=== PATIENT | male | born 1945 | race Caucasian/White ===

== ENCOUNTER 2016-10-26 23:04 | Emergency (ER) | payer MEDICARE, BC, OTHER ==
[2016-10-26] MEDS ORDERED: Sodium Chloride 0.9% 2.5 ML Syringe FLUSH PRN (23:08)
[2016-10-26] MEDS ORDERED: Pantoprazole 40 MG Vial IVPUSH ONE (23:08)
[2016-10-26] MEDS ORDERED: Sodium Chloride 0.9% 10 ML Syringe FLUSH PRN (23:08)
[2016-10-26] MEDS ORDERED: Nitroglycerin 2% Oint 1 GM UD Packet TOP ONE (23:08)
[2016-10-26] MEDS ORDERED: Pantoprazole 80 MG in Sodium Chloride 0.9% 100 ML IV SCH (23:15)
[2016-10-26] MEDS ORDERED: Sodium Chloride 0.9% 1,000 ML IV SCH (23:15)
--- NOTE | 2016-10-26 23:22 | EDM.PDOC ---
ED HPI GENERAL MEDICAL PROBLEM - General Stated Complaint: TROUBLE BREATHING/HEART COMPLICATIONS Time Seen by Provider: 10/26/16 23:07 - History of Present Illness INITIAL COMMENTS - FREE TEXT/NARRATIVE: HISTORY AND PHYSICAL: History of present illness: Patient 8-year-old male with history of coronary artery disease including bypass surgery 15 years prior states your recent cardiac workup including stress that was unremarkable he comes in today with chest pain exertional this has been since this a.m. he said no treatment with nitroglycerin on arrival here he states with rest in bed he is essentially pain-free he also said black stools times one day he denies abdominal pain he has had equivocal shortness of breath he denies nausea vomiting diaphoresis fever chills or other complaints patient take aspirin and Plavix daily Review of systems: As per history of present illness and below otherwise all systems reviewed and negative. Past medical history: As per history of present illness and as reviewed below otherwise noncontributory. Surgical history: As per history of present illness and as reviewed below otherwise noncontributory. Social history: No reported history of drug or alcohol abuse. Family history: As per history of present illness and as reviewed below otherwise noncontributory. Physical exam: HEENT: Atraumatic, normocephalic, pupils reactive, negative for scleral icterus , mucous membranes moist, throat clear, neck supple, nontender, trachea midline. Lungs: Clear to auscultation, breath sounds equal bilaterally, chest nontender. Heart: S1S2, regular, negative for clicks, rubs, or JVD. Abdomen: Soft, nondistended, nontender. Negative for masses or hepatosplenomegaly. Negative for costovertebral tenderness. Pelvis: Stable nontender. Genitourinary: Deferred. Rectal: Deferred. Extremities: Atraumatic, negative for cords or calf pain. Neurovascular unremarkable. Neuro: Awake, alert, oriented. Cranial nerves II through XII unremarkable. Cerebellum unremarkable. Motor and sensory unremarkable throughout. Exam nonfocal. Diagnostics: CBC CMP PT/INR troponin chest x-ray EKG type and screen Therapeutics: IV O2 monitor Protonix 80 mg bolus followed by a milligram hour drip nitroglycerin paste Impression: #1 chest pain #2 GI bleed Definitive disposition and diagnosis as appropriate pending reevaluation and review of above. - Related Data Allergies Allergy/AdvReac Type Severity Reaction Status Date / Time No Known Allergies Allergy Verified 10/26/16 23:12 Home Meds: Home Meds Calcium Carbonate/Vitamin D3 [Calcium 250+D] 1 tab PO DAILY 05/17/16 [History] Lisinopril [Prinivil] 10 mg PO DAILY 05/17/16 [History] Methotrexate Sodium [Methotrexate] 12.5 mg PO FOSTER@0900 05/17/16 [History] Metoprolol Tartrate [Lopressor] 25 mg PO Q12HR 05/17/16 [History] Niacin 500 mg PO DAILY 05/17/16 [History] Wever-3 Fatty Acids [Fish Oil] 300 mg PO DAILY 05/17/16 [History] Simvastatin [Zocor] 80 mg PO BEDTIME 05/17/16 [History] predniSONE [Prednisone] 2.5 mg PO DAILY 05/17/16 [History] Gabapentin [Neurontin] 600 mg PO TID 06/27/16 [History] HYDROmorphone [Dilaudid] 4 mg PO Q4H 06/27/16 [History] fentaNYL [Fentanyl] 50 mcg TD ASDIRECTED 06/27/16 [History] Aspirin 81 mg PO BEDTIME #0 07/02/16 [Rx] Clopidogrel [Plavix] 75 mg PO DAILY #0 07/02/16 [Rx] tiZANidine [Zanaflex] 4 mg PO Q8H PRN #15 tablet 07/02/16 [Rx] Past Medical History HEENT History: Reports: Hard of hearing Cardiovascular History: Reports: Afib, CAD, High cholesterol, Hypertension Respiratory History: Reports: Sleep apnea Musculoskeletal History: Reports: Back pain, chronic, RA Neurological History: Reports: Migraines Psychiatric History: Reports: None Endocrine/Metabolic History: Reports: None Hematologic History: Reports: None Immunologic History: Reports: None Oncologic (Cancer) History: Reports: None Dermatologic History: Reports: Other (see below) Other Dermatologic History: Dermatitis - Infectious Disease History Infectious Disease History: Reports: None - Past Surgical History Head Surgeries/Procedures: Reports: None HEENT Surgical History: Reports: None Cardiovascular Surgical History: Reports: Carotid endarterectomy, Coronary artery bypass Respiratory Surgical History: Reports: None Neurological Surgical History: Reports: None Musculoskeletal Surgical History: Reports: None Dermatological Surgical History: Reports: None Social & Family History - Family History Family Medical History: Noncontributory - Tobacco Use Smoking Status *Q: Former Smoker Used Tobacco, but Quit: Yes Month Tobacco Last Used: 2005 Second Hand Smoke Exposure: No - Caffeine Use Caffeine Use: Reports: None - Recreational Drug Use Recreational Drug Use: No Drug Use in Last 12 Months: No ED ROS GENERAL - Review of Systems Review Of Systems: ROS reveals no pertinent complaints other than HPI. ED EXAM, GENERAL - Physical Exam Exam: See Below (See dictation) Course - Orders/Labs/Meds Orders: Active Orders 24 hr Category Date Time Status Cardiac Monitoring [RC] . DIRECTED Care 10/26/16 23:07 Ordered EKG Documentation Completion [RC] STAT Care 10/26/16 23:07 Ordered Oxygen Therapy, ED [RC] ASDIRECTED Care 10/26/16 23:07 Ordered Pulse Oximetry [RC] ASDIRECTED Care 10/26/16 23:07 Ordered Chest 1V Frontal [CR] Stat Exams 10/26/16 23:08 Ordered B-TYPE NATRIURETIC PEPTIDE,BNP [CHEM] Stat Lab 10/26/16 23:08 Ordered CBC WITH AUTO DIFF [HEME] Stat Lab 10/26/16 23:08 Ordered COMPREHENSIVE METABOLIC PN,CMP [CHEM] Stat Lab 10/26/16 23:08 Ordered INR,PT,PROTHROMBIN TIME [COAG] Stat Lab 10/26/16 23:08 Ordered TROPONIN I [CHEM] Stat Lab 10/26/16 23:08 Ordered TYPE AND SCREEN [BBK] Stat Lab 10/26/16 23:08 Ordered Pantoprazole [Protonix IV] 80 mg Med 10/26/16 23:15 Ordered Sodium Chloride 0.9% [Normal Saline] 100 ml IV .Continuous Sodium Chloride 0.9% [Normal Saline] 1,000 ml Med 10/26/16 23:15 Ordered IV STAT Sodium Chloride 0.9% [Saline Flush] Med 10/26/16 23:08 Ordered 10 ml FLUSH ASDIRECTED PRN Sodium Chloride 0.9% [Saline Flush] Med 10/26/16 23:08 Ordered 2.5 ml FLUSH ASDIRECTED PRN Saline Lock Insert [OM.PC] Stat Oth 10/26/16 23:07 Ordered Medication Orders Pantoprazole Sodium 80 mg/ (Sodium Chloride) 100 mls @ 10 mls/hr IV .Continuous ALISON Sodium Chloride (Normal Saline) 1,000 mls @ 125 mls/hr IV STAT ALISON Sodium Chloride (Saline Flush) 10 ml FLUSH ASDIRECTED PRN PRN Reason: Keep Vein Open Sodium Chloride (Saline Flush) 2.5 ml FLUSH ASDIRECTED PRN PRN Reason: Keep Vein Open Meds: Medications Generic Name Dose Route Start Last Admin Trade Name Freq PRN Reason Stop Dose Admin Pantoprazole Sodium 80 mg/ 100 mls @ 10 mls/hr 10/26/16 23:15 Sodium Chloride IV .Continuous ALISON Sodium Chloride 1,000 mls @ 125 mls/hr 10/26/16 23:15 Normal Saline IV STAT ALISON Sodium Chloride 10 ml 10/26/16 23:08 Saline Flush FLUSH ASDIRECTED PRN Keep Vein Open Sodium Chloride 2.5 ml 10/26/16 23:08 Saline Flush FLUSH ASDIRECTED PRN Keep Vein Open Discontinued Medications Generic Name Dose Route Start Last Admin Trade Name Freq PRN Reason Stop Dose Admin Nitroglycerin 1 gm 10/26/16 23:08 Nitro-Bid 2% TOP 10/26/16 23:09 ONETIME ONE Pantoprazole Sodium 80 mg 10/26/16 23:08 Protonix Iv IVPUSH 10/26/16 23:09 .BOLUS ONE Departure - Departure Time of Disposition: 23:21 Disposition: DC/Tfer to Other 70 Condition: serious Clinical Impression: Chest pain, GI bleed - My Orders Last 24 Hours: My Active Orders 10/26/16 23:07 Cardiac Monitoring [RC] . DIRECTED EKG Documentation Completion [RC] STAT Oxygen Therapy, ED [RC] ASDIRECTED Pulse Oximetry [RC] ASDIRECTED Saline Lock Insert [OM.PC] Stat 10/26/16 23:08 Chest 1V Frontal [CR] Stat B-TYPE NATRIURETIC PEPTIDE,BNP [CHEM] Stat CBC WITH AUTO DIFF [HEME] Stat COMPREHENSIVE METABOLIC PN,CMP [CHEM] Stat INR,PT,PROTHROMBIN TIME [COAG] Stat TROPONIN I [CHEM] Stat TYPE AND SCREEN [BBK] Stat Sodium Chloride 0.9% [Saline Flush] 10 ml FLUSH ASDIRECTED PRN Sodium Chloride 0.9% [Saline Flush] 2.5 ml FLUSH ASDIRECTED PRN 10/26/16 23:15 Pantoprazole [Protonix IV] 80 mg Sodium Chloride 0.9% [Normal Saline] 100 ml IV .Continuous Sodium Chloride 0.9% [Normal Saline] 1,000 ml IV STAT - Assessment/Plan Last 24 Hours: My Active Orders 10/26/16 23:07 Cardiac Monitoring [RC] . DIRECTED EKG Documentation Completion [RC] STAT Oxygen Therapy, ED [RC] ASDIRECTED Pulse Oximetry [RC] ASDIRECTED Saline Lock Insert [OM.PC] Stat 10/26/16 23:08 Chest 1V Frontal [CR] Stat B-TYPE NATRIURETIC PEPTIDE,BNP [CHEM] Stat CBC WITH AUTO DIFF [HEME] Stat COMPREHENSIVE METABOLIC PN,CMP [CHEM] Stat INR,PT,PROTHROMBIN TIME [COAG] Stat TROPONIN I [CHEM] Stat TYPE AND SCREEN [BBK] Stat Sodium Chloride 0.9% [Saline Flush] 10 ml FLUSH ASDIRECTED PRN Sodium Chloride 0.9% [Saline Flush] 2.5 ml FLUSH ASDIRECTED PRN 10/26/16 23:15 Pantoprazole [Protonix IV] 80 mg Sodium Chloride 0.9% [Normal Saline] 100 ml IV .Continuous Sodium Chloride 0.9% [Normal Saline] 1,000 ml IV STAT
[2016-10-27 00:17] LABS: CHLORIDE,CL 108 mmol/L (98-110); SODIUM,NA 141 mmol/L (136-146)
[2016-10-27 00:42] VITALS: BP 127/67
--- NOTE | 2016-10-28 18:21 | CR ---
EXAM DATE: 10/26/16 PATIENT'S AGE: 71 Patient: RICH NORY Facility: [facility] [place] Site . Site : [id number] Study: XRay Chest [id number]/4/2017 11:35:50 PM Ordering Physician: Doctor Wallace Final Report: INDICATION: Chest pain TECHNIQUE: Chest 1 view. COMPARISON: 05/17/2016 FINDINGS: Cardiovascular and mediastinum: Heart size and vasculature are normal in caliber and appearance. Sternotomy wires noted. Mediastinum is within normal limits. Lungs and pleural space: Lungs are clear. No sign of infiltrate or mass. No sign of pleural effusion. No pneumothorax. Bones and soft tissues: No significant findings. IMPRESSION: Unremarkable chest. Dictated by Rich Lindsey MD @ 10/26/2016 11:57:42 PM Dictated by: Rich Lindsey MD @ 10/26/2016 23:59:08 (Electronic Signature) Report Signed by Proxy and Original Signed Document filed in the Medical Record. MTDD
== END 2016-10-27 00:25 | disposition other institution (70) ==
LOC: MW.ED 23:04
DX: K92.2 Gastrointestinal hemorrhage, unspecified (principal); R07.9 Chest pain, unspecified; I48.91 Unspecified atrial fibrillation; E78.00 Pure hypercholesterolemia, unspecified; I25.810 Atherosclerosis of coronary artery bypass graft(s) without angina pectoris; I10 Essential (primary) hypertension; M06.9 Rheumatoid arthritis, unspecified; Z79.82 Long term (current) use of aspirin; Z79.899 Other long term (current) drug therapy; Z87.891 Personal history of nicotine dependence
CPT/HCPCS: 36415; 71010; 80053; 82272; 83880; 84484; 85025; 85610; 86850; 86900; 86901; 93005; 96365; 96376; 99285; A9270; C9113; J7030; J7040

== ENCOUNTER → 2016-11-15 | Outpatient (CLI) | payer OTHER, MEDICARE, BC | LOC: MW.CHFP 08:21 | PROVIDERS: ATTEND Emergency Medicine | DX: I10 Essential (primary) hypertension (principal) | CPT/HCPCS: 36415; 85027 ==

== ENCOUNTER 2017-01-14 10:43 | Day surgery (SDC) | payer OTHER, MEDICARE, BC ==
[~2017-01-14 10:43] MED LIST: Lactated Ringers 1,000 ML IV SCH; Propofol 200 MG/20 ML SDV ONE; fentaNYL 100 MCG/2 ML SDV ONE
--- NOTE | 2017-01-14 11:35 | PCM.PREANE ---
Preanesthetic Assessment - Anesthesia/Transfusion/Family Hx Anesthesia History: Prior Anesthesia Without Reaction Family History of Anesthesia Reaction: No Transfusion History: Prior Transfusion Without Reaction Intubation History: Unknown - Review of Systems General: No Symptoms Pulmonary: No Symptoms Cardiovascular: No Symptoms Neurological: No Symptoms Other: Reports: None - Physical Assessment O2 Sat by Pulse Oximetry: 96 Respiratory Rate: 14 Vital Signs: Last Vital Signs Temp 36.2 C 01/14/17 11:29 Pulse 45 L 01/14/17 11:29 Resp 14 01/14/17 11:29 BP 117/56 L 01/14/17 11:29 Pulse Ox 96 01/14/17 11:29 Height: 1.83 m Weight: 90.718 kg ASA Class: 3 Mental Status: Alert & Oriented x3 Airway Class: Mallampati = 2 Dentition: Reports: Normal Dentition Thyro-Mental Finger Breadths: 3 ROM/Head Extension: Limited/Partial Lungs: Clear to auscultation, Normal respiratory effort Cardiovascular: Regular Rate, Regular Rhythm - Allergies Allergies/Adverse Reactions: Allergies Allergy/AdvReac Type Severity Reaction Status Date / Time No Known Allergies Allergy Verified 10/26/16 23:12 - Blood Blood Available: No - Anesthesia Plan Pre-Op Medication Ordered: None - Acknowledgements Anesthesia Type Planned: MAC Pt an Appropriate Candidate for the Planned Anesthesia: Yes Alternatives and Risks of Anesthesia Discussed w Pt/Guardian: Yes Pt/Guardian Understands and Agrees with Anesthesia Plan: Yes PreAnesthesia Questionnaire HEENT History: Reports: Other (See Below) Other HEENT History: wears glasses Cardiovascular History: Reports: Afib, CAD (s/p CABG x2 '02), High Cholesterol, Hypertension, Other (See Below) (s/p left carotid endarterectomy) Respiratory History: Reports: Sleep Apnea Other Respiratory History: mild sleep apnea, does not use CPAP Gastrointestinal History: Reports: GERD, GI Bleed (in october) Genitourinary History: Reports: None Musculoskeletal History: Reports: Back Pain, Chronic, RA Neurological History: Reports: Migraines Psychiatric History: Reports: None Endocrine/Metabolic History: Reports: None Hematologic History: Reports: Anemia, Blood Transfusion(s) Other Hematologic History: 4 units of blood 2 to 3 months ago for GI bleed Immunologic History: Reports: None Oncologic (Cancer) History: Reports: None Dermatologic History: Reports: Other (See Below) Other Dermatologic History: Dermatitis - Infectious Disease History Infectious Disease History: Reports: None - Past Surgical History Head Surgeries/Procedures: Reports: None HEENT Surgical History: Reports: None Cardiovascular Surgical History: Reports: Carotid Endarterectomy, Coronary Artery Bypass Respiratory Surgical History: Reports: None GI Surgical History: Reports: Colonoscopy, EGD Male Surgical History: Reports: None Neurological Surgical History: Reports: None Musculoskeletal Surgical History: Reports: None Dermatological Surgical History: Reports: None - SUBSTANCE USE Smoking Status *Q: Former Smoker Tobacco Use Within Last Twelve Months: No Second Hand Smoke Exposure: No Recreational Drug Use History: No - HOME MEDS Home Medications: Home Meds Calcium Carbonate/Vitamin D3 [Calcium 250+D] 1 tab PO BID 05/17/16 [History] Lisinopril [Prinivil] 5 mg PO DAILY 05/17/16 [History] Metoprolol Tartrate [Lopressor] 25 mg PO BID 05/17/16 [History] Perley-3 Fatty Acids [Fish Oil] 300 mg PO DAILY 05/17/16 [History] predniSONE [Prednisone] 2.5 mg PO DAILY 05/17/16 [History] Aspirin 81 mg PO BEDTIME #0 07/02/16 [Rx] atorvaSTATin [Lipitor] 40 mg PO BEDTIME 10/26/16 [History] traZODone HCl [Trazodone HCl] 100 mg PO BEDTIME PRN 10/26/16 [History] Alendronate Sodium [Fosamax] 70 mg PO WEEKLY 01/09/17 [History] Hydrocortisone [Cortisone] 1 applic TOP ASDIRECTED PRN 01/09/17 [History] Meloxicam [Mobic] 15 mg PO DAILY 01/09/17 [History] Methotrexate 6 tab PO WEEKLY 01/09/17 [History] Pantoprazole Sodium 40 mg PO BID 01/09/17 [History] - CURRENT (IN HOUSE) MEDS Current Meds: Current Medications Lactated Ringer's (Ringers, Lactated) 1,000 mls @ 125 mls/hr IV ASDIRECTED ALISON Last Admin: 01/14/17 11:27 Dose: 125 mls/hr Discontinued Medications Fentanyl (Sublimaze) Confirm Administered Dose 100 mcg .ROUTE .STK-MED ONE Stop: 01/14/17 07:30 Propofol (Diprivan 20 Ml) Confirm Administered Dose 400 mg .ROUTE .STK-MED ONE Stop: 01/14/17 07:29
[2017-01-14] MEDS ORDERED: Propofol 200 MG/20 ML SDV ONE (13:01)
--- NOTE | 2017-01-14 13:29 | PCM.OPNOTE ---
- General Post-Op/Procedure Note Date of Surgery/Procedure: 01/14/17 Operative Procedure(s): egd and colonoscopy Findings: see dict [id number] Pre Op Diagnosis: gib and abd pain Post-Op Diagnosis: gastritis and hemorrhoid Anesthesia Technique: Moderate sedation Primary Surgeon: Zenon Gunn Complications: None Condition: Good
--- NOTE | 2017-01-14 13:53 | PCM.POSTAN ---
POST ANESTHESIA ASSESSMENT - MENTAL STATUS Mental Status: alert, oriented - RESPIRATORY Respiratory Status: respiratory rate WNL, airway patent, O2 saturation stable - CARDIOVASCULAR CV Status: pulse rate WNL, blood pressure stable - GASTROINTESTINAL GI Status: no symptoms - POST OP HYDRATION Hydration Status: adequate & stable - OBSERVATIONS Free Text/Narrative:: no anesthesia problems
[2017-01-14 14:28] VITALS: BP 117/56
--- NOTE | 2017-01-14 20:18 | OR ---
SURGEON: Zenon Gunn MD DATE OF PROCEDURE: 01/14/2017 PREOPERATIVE DIAGNOSES: Abdominal pain and gastrointestinal bleeding. POSTOPERATIVE DIAGNOSES: Gastritis and hemorrhoids. PROCEDURE PERFORMED: EGD without biopsy and colonoscopy without biopsy. EGD: The patient was taken to the endoscopy room, and with the [employer] [employer], Diprivan was administered. A well-lubricated EGD scope was gently inserted through the oropharynx, down the esophagus, passing through the gastroesophageal junction, into the stomach. The mucosa was examined upon the passage. Any etiology will be noted. Once in the stomach, we continued to advance to the distal antrum, passed through the pylorus into the second portion of the duodenum. Again, the mucosa was examined for any abnormality and etiology. The scope was then retrieved back to the stomach and then retroflexed to look at the fundus of the stomach. The air will be sucked out while the scope is retrieved to reduce the patient's discomfort. The patient tolerated the procedure well. There were no intraoperative complications. Dr. Gunn was present through the whole procedure. Prior to surgery, a time-out had been called, the patient identified, procedure identified and antibiotic administered. Colonoscopy: The patient was taken to the endoscopy room. A time out was called, patient identified, and procedure identified. Diprivan was then administrated. Patient went from awake to sleep, hearing doctor talking or door closing is normal. Perineum inspection and digital examination were then performed. A well-lubricated colonoscope was gently inserted through the rectum, advanced past the rectosigmoid junction, the descending colon, splenic flexure, transverse colon, hepatic flexure, ascending colon, arrived to the cecum. Cecum was identified as dictated in the finding. Then the scope was carefully withdrawn while attention was paid to the mucosal surface for any abnormality. Air will be sucked out during the scope withdrawal. At the rectum, retroflexed to examine any rectal diseases, fistula or hemorrhoids. The patient tolerated procedure well. There were no intraoperative complications, and Dr. Gunn was present throughout the whole procedure. FINDINGS: EGD finding: The patient was easily sedated with [employer]IST and Diprivan. The patient was soundly snoring. The patient was on aspirin all the way two days ago, so avoid biopsy. Oropharynx and proximal esophagus were free of disease. Distal esophagus and GE junction at 40 shows mild salmon color change consistent with acid reflux. Stomach rugae was normal in appearance. No bile, food, or blood observed in the stomach. Antrum was slightly inflamed. Duodenum was grossly normal in appearance and the scope retrieved back to the stomach. Retroflexion of the fundus of the stomach, there were no hiatal hernias and sucked out air while scope pulling out. No biopsy obtained, as the patient was on aspirin up to about two days ago. The area was very inflamed, but there was no flank ulcer and no blood observed. Colonoscopy findin. The patient was easily sedated with [employer] [employer]IST and Diprivan. The patient is soundly snoring. 2. The patient's bowel prep is left to be desirable with some minimal-to- moderate amount of liquid stool obscured with compromised study. Colon rather straight forward. Cecum indicated by ileocecal fold, one-to-one indentation, and light immittance is not observed. Appendix orifice is observed. Mucosa examined upon scope pulling out with constant irrigation. The patient does not have polyp, mass, growth, inflammation, diverticulosis, stricture, ulceration, bleeding, or AV malformation. The patient has mild internal hemorrhoids. No external hemorrhoids. The patient would benefit from repeat colonoscopy 10 years from today or if clinically indicated otherwise. As always, thank you for the kind referral. LUDWIN CARMEN /[id number] INDIGO
== END 2017-01-14 13:50 | disposition home or self-care (01) ==
LOC: MW.SDS 10:43
PROVIDERS: ATTEND Surgery
DX: K64.8 Other hemorrhoids (principal); K29.70 Gastritis, unspecified, without bleeding; I25.10 Atherosclerotic heart disease of native coronary artery without angina pectoris; I48.91 Unspecified atrial fibrillation; I10 Essential (primary) hypertension; E78.00 Pure hypercholesterolemia, unspecified; G47.30 Sleep apnea, unspecified; M06.9 Rheumatoid arthritis, unspecified; K21.9 Gastro-esophageal reflux disease without esophagitis; Z95.1 Presence of aortocoronary bypass graft; Z98.890 Other specified postprocedural states; Z79.82 Long term (current) use of aspirin; Z79.899 Other long term (current) drug therapy
CPT/HCPCS: 43235; 45378; J3010; J7120; 00740; J2704

== ENCOUNTER 2018-05-26 21:29 | Observation (INO) | payer OTHER, MEDICARE, BC ==
[2018-05-26] MEDS ORDERED: Sodium Chloride 0.9% 2.5 ML Syringe FLUSH PRN ×2 (21:44)
[2018-05-26] MEDS ORDERED: Sodium Chloride 0.9% 10 ML Syringe FLUSH PRN (21:44)
[2018-05-26] MEDS ORDERED: Aspirin 81 MG Tab.Chew PO ONE (21:44)
[2018-05-26] MEDS ORDERED: Nitroglycerin 0.4 MG Tab.SL SL ONE (21:44)
[2018-05-26] MEDS ORDERED: Sodium Chloride 0.9% 1,000 ML IV ONE (21:44)
--- NOTE | 2018-05-26 21:54 | EDM.PDOC ---
ED HPI GENERAL MEDICAL PROBLEM - General Chief Complaint: Chest Pain Stated Complaint: BLOOD PRESURE HIGH AND CHEST PAINS Time Seen by Provider: 05/26/18 21:31 Source of Information: Reports: Patient History Limitations: Reports: No Limitations - History of Present Illness INITIAL COMMENTS - FREE TEXT/NARRATIVE: HISTORY AND PHYSICAL: History of present illness: [72-year-old male presenting to emergency department with chief complaint of chest pain and left arm pain with past medical history of CABG 2 on Plavix, HI , CAD, hyperlipidemia, and rheumatoid arthritis.] Patient states that this last weekend on Friday and Friday he felt more fatigued and some mild "heartburn" which is unusual for him. States that 2 days ago he had a headache and felt somewhat sweaty with some shortness of breath. Tonight he again had some heart burn as well as left arm pain so came to the emergency department for futher evaluation secondary to his cardiac history. Arm pain is constant and dull and his heart burn is substernal without radiation. He did have some diaphoresis and shortness of breath but denies any nausea and vomiting. He did have an HI in which felt much different with significant chest pain, nausea, diphoresis and sob. This is different. He has RA and get joint and limb pain often and is not sure if the left arm pain is secondary to this. He also has a history of heartburn but has been taking a perscription ppi which has controlled his symptoms until now. He had a CABG x 2 in . He last saw his telegraph inspector Dr. Jo. Review of systems: As per history of present illness and below otherwise all systems reviewed and negative. Past medical history: As per history of present illness and as reviewed below otherwise noncontributory. Surgical history: As per history of present illness and as reviewed below otherwise noncontributory. Social history: No reported history of drug or alcohol abuse. Family history: As per history of present illness and as reviewed below otherwise noncontributory. Physical exam: HEENT: Atraumatic, normocephalic, pupils reactive, negative for conjunctival pallor or scleral icterus, mucous membranes moist, throat clear, neck supple, nontender, trachea midline. Lungs: Clear to auscultation, breath sounds equal bilaterally, chest nontender. Heart: S1S2, regular, negative for clicks, rubs, or JVD. Abdomen: Soft, nondistended, nontender. Negative for masses or hepatosplenomegaly. Negative for costovertebral tenderness. Pelvis: Stable nontender. Genitourinary: Deferred. Rectal: Deferred. Extremities: Atraumatic, negative for cords or calf pain. Neurovascular unremarkable. Neuro: Awake, alert, oriented. Cranial nerves II through XII unremarkable. Cerebellum unremarkable. Motor and sensory unremarkable throughout. Exam nonfocal. Diagnostics: CBC, CMP, troponin, INR, d-dimer, chest x-ray, EKG Therapeutics: 1 L normal saline, 324 mg by mouth ASA, 0.4 mg SL nitroglycerin 1 Impression: Atypical chest pain GERD Left arm pain History rheumatoid arthritis Plan: CBC, CMP, troponin, INR, chest x-ray were all unremarkable. EKG showed normal sinus rhythm without any significant new ST changes. D-dimer was elevated however Wells criteria was low. We did get a CT angio however which was negative for PE. Secondary to patient's cardiac history patient was admitted to Dr. Pritchard, hospitalist, who agreed for observation telemetry for atypical chest pain. Definitive disposition and diagnosis as appropriate pending reevaluation and review of above. chest pain Pain Score (Numeric/FACES): 2 - Related Data Allergies Allergy/AdvReac Type Severity Reaction Status Date / Time No Known Allergies Allergy Verified 05/26/18 21:31 Home Meds: Home Meds Calcium Carbonate/Vitamin D3 [Calcium 250+D] 1 tab PO DAILY 05/17/16 [History] Metoprolol Tartrate [Lopressor] 25 mg PO BID 05/17/16 [History] [place]-3 Fatty Acids [Fish Oil] 300 mg PO DAILY 05/17/16 [History] predniSONE [Prednisone] 5 mg PO DAILY 05/17/16 [History] Aspirin 81 mg PO BEDTIME #0 07/02/16 [Rx] atorvaSTATin [Lipitor] 40 mg PO BEDTIME 10/26/16 [History] traZODone HCl [Trazodone HCl] 100 mg PO BEDTIME PRN 10/26/16 [History] Alendronate Sodium [Fosamax] 70 mg PO WEEKLY 01/09/17 [History] Meloxicam [Mobic] 15 mg PO DAILY 01/09/17 [History] Methotrexate 8 tab PO WEEKLY 01/09/17 [History] Clopidogrel [Plavix] 75 tab PO DAILY 10/02/18 [History] Etanercept [Enbrel] 25 ml IM ASDIRECTED 05/26/18 [History] amLODIPine Besylate [Amlodipine Besylate] 10 tab PO DAILY 05/26/18 [History] Past Medical History HEENT History: Reports: Other (See Below) Other HEENT History: wears glasses Cardiovascular History: Reports: Afib, Bypass, CAD, High Cholesterol, Hypertension, [place], Other (See Below) Respiratory History: Reports: Sleep Apnea Other Respiratory History: mild sleep apnea, does not use CPAP Gastrointestinal History: Reports: GERD, GI Bleed Genitourinary History: Reports: None Musculoskeletal History: Reports: Back Pain, Chronic, RA Neurological History: Reports: Migraines Psychiatric History: Reports: None Endocrine/Metabolic History: Reports: None Hematologic History: Reports: Anemia, Blood Transfusion(s) Other Hematologic History: 4 units of blood 2 to 3 months ago for GI bleed Immunologic History: Reports: None Oncologic (Cancer) History: Reports: None Dermatologic History: Reports: Other (See Below) Other Dermatologic History: Dermatitis - Infectious Disease History Infectious Disease History: Reports: None - Past Surgical History Head Surgeries/Procedures: Reports: None HEENT Surgical History: Reports: None Cardiovascular Surgical History: Reports: Carotid Endarterectomy, Coronary Artery Bypass Respiratory Surgical History: Reports: None GI Surgical History: Reports: Colonoscopy, EGD Male Surgical History: Reports: None Neurological Surgical History: Reports: None Musculoskeletal Surgical History: Reports: None Dermatological Surgical History: Reports: None Social & Family History - Family History Family Medical History: Noncontributory - Tobacco Use Smoking Status *Q: Never Smoker - Caffeine Use Caffeine Use: Reports: None - Recreational Drug Use Recreational Drug Use: No ED ROS GENERAL - Review of Systems Review Of Systems: ROS reveals no pertinent complaints other than HPI. ED EXAM, GENERAL - Physical Exam Exam: See Below Course - Vital Signs Last Recorded V/S: Last Vital Signs Temp 96.8 F 05/27/18 04:00 Pulse 46 L 05/27/18 04:00 Resp 18 05/27/18 04:00 BP 131/60 05/27/18 04:00 Pulse Ox 93 L 05/27/18 04:00 - Orders/Labs/Meds Orders: Active Orders 24 hr Category Date Time Status Oxygen Therapy [RC] ASDIRECTED Care 05/26/18 21:44 Active Pulse Oximetry [RC] ASDIRECTED Care 05/26/18 21:44 Active Chest 1V Frontal [CR] Stat Exams 05/26/18 21:44 Taken Chest PE [Ang Chest] [CT] Stat Exams 05/26/18 22:45 Taken Sodium Chloride 0.9% [Saline Flush] Med 05/26/18 21:44 Active 10 ml FLUSH ASDIRECTED PRN Sodium Chloride 0.9% [Saline Flush] Med 05/26/18 21:44 Active 2.5 ml FLUSH ASDIRECTED PRN Sodium Chloride 0.9% [Saline Flush] Med 05/26/18 21:44 Active 2.5 ml FLUSH ASDIRECTED PRN Saline Lock Insert [OM.PC] Stat Oth 05/26/18 21:44 Ordered Medication Orders Amlodipine Besylate (Norvasc) 10 mg PO DAILY [facility] Atorvastatin Calcium (Lipitor) 40 mg PO BEDTIME [facility] Clopidogrel Bisulfate (Plavix) 75 mg PO DAILY [facility] Metoprolol Tartrate (Lopressor) 25 mg PO BID [facility] Sodium Chloride (Saline Flush) 2.5 ml FLUSH ASDIRECTED PRN PRN Reason: Keep Vein Open Sodium Chloride (Saline Flush) 10 ml FLUSH ASDIRECTED PRN PRN Reason: Keep Vein Open Sodium Chloride (Saline Flush) 2.5 ml FLUSH ASDIRECTED PRN PRN Reason: Keep Vein Open Labs: Laboratory Tests 05/26/18 05/26/18 05/26/18 Range/Units 21:40 21:40 21:40 WBC 6.38 (4.0-11.0) K/uL RBC 4.13 L (4.50-5.90) M/uL Hgb 12.4 L (13.0-17.0) g/dL Hct 36.9 L (38.0-50.0) % MCV 89.3 (80.0-98.0) fL MCH 30.0 (27.0-32.0) pg MCHC 33.6 (31.0-37.0) g/dL RDW Std Deviation 44.4 (28.0-62.0) fl RDW Coeff of [place] 14 (11.0-15.0) % Plt Count 222 (150-400) K/uL MPV 9.30 (7.40-12.00) fL Neut % (Auto) 66.0 (48.0-80.0) % Lymph % (Auto) 23.4 (16.0-40.0) % [place] % (Auto) 8.2 (0.0-15.0) % Eos % (Auto) 2.2 (0.0-7.0) % Baso % (Auto) 0.2 (0.0-1.5) % Neut # (Auto) 4.2 (1.4-5.7) K/uL Lymph # (Auto) 1.5 (0.6-2.4) K/uL [place] # (Auto) 0.5 (0.0-0.8) K/uL Eos # (Auto) 0.1 (0.0-0.7) K/uL Baso # (Auto) 0.0 (0.0-0.1) K/uL Nucleated RBC % 0.0 /100WBC Nucleated RBCs # 0 K/uL INR 0.95 D-Dimer, Quantitative 3.18 H (0.0-0.52) mg/LFEU Sodium 137 (136-148) mmol/L Potassium 4.2 (3.5-5.1) mmol/L Chloride 102 (98-107) mmol/L Carbon Dioxide 27.6 (21.0-32.0) mmol/L BUN 19 H (7.0-18.0) mg/dL Creatinine 1.0 (0.8-1.3) mg/dL Est Cr Clr Drug Dosing 74.37 mL/min Estimated GFR (MDRD) > 60.0 ml/min Glucose 101 (74-106) mg/dL Calcium 9.4 (8.5-10.1) mg/dL Total Bilirubin 0.4 (0.2-1.0) mg/dL AST 16 (15-37) IU/L ALT 23 (14-63) IU/L Alkaline Phosphatase 103 (46-116) U/L Troponin I < 0.050 (0.000-0.056) ng/mL Total Protein 7.5 (6.4-8.2) g/dL Albumin 3.6 (3.4-5.0) g/dL Globulin 3.9 H (2.0-3.5) g/dL Albumin/Globulin Ratio 0.9 L (1.3-2.8) Lipase 254 (73-393) U/L Meds: Medications Generic Name Dose Route Start Last Admin Trade Name Freq PRN Reason Stop Dose Admin Amlodipine Besylate 10 mg 05/27/18 09:00 Norvasc PO DAILY [facility] Atorvastatin Calcium 40 mg 05/27/18 21:00 Lipitor PO BEDTIME [facility] Clopidogrel Bisulfate 75 mg 05/27/18 09:00 Plavix PO DAILY [facility] Metoprolol Tartrate 25 mg 05/27/18 09:00 Lopressor PO BID [facility] Sodium Chloride 2.5 ml 05/26/18 21:44 Saline Flush FLUSH ASDIRECTED PRN Keep Vein Open Sodium Chloride 10 ml 05/26/18 21:44 Saline Flush FLUSH ASDIRECTED PRN Keep Vein Open Sodium Chloride 2.5 ml 05/26/18 21:44 Saline Flush FLUSH ASDIRECTED PRN Keep Vein Open Discontinued Medications Generic Name Dose Route Start Last Admin Trade Name Freq PRN Reason Stop Dose Admin Aspirin 324 mg 05/26/18 21:44 05/26/18 21:54 Aspirin PO 05/26/18 21:45 324 mg ONETIME ONE Administration Famotidine 20 mg 05/26/18 23:56 05/27/18 00:01 Pepcid IVPUSH 05/26/18 23:57 20 mg ONETIME ONE Administration Sodium Chloride 1,000 mls @ 999 mls/hr 05/26/18 21:44 05/26/18 21:53 Normal Saline IV 05/26/18 22:44 999 mls/hr BOLUS ONE Administration Iopamidol 50 ml 05/26/18 23:20 05/26/18 23:21 Isovue Multipack-370 (76%) IVPUSH 05/26/18 23:21 50 ml ONETIME STA Administration Nitroglycerin 0.4 mg 05/26/18 21:44 05/26/18 21:53 Nitrostat SL 05/26/18 21:45 0.4 mg ONETIME ONE Administration Non-Formulary Medication 80 tab 05/27/18 09:00 Simvastatin [Zocor] PO DAILY [facility] Departure - Departure Time of Disposition: 05:45 Disposition: Refer to Observation Condition: Good Clinical Impression: Atypical chest pain, Left arm pain GERD (gastroesophageal reflux disease) Qualifiers: Esophagitis presence: esophagitis presence not specified Qualified Code(s): K21.9 - Gastro-esophageal reflux disease without esophagitis - Discharge Information - My Orders Last 24 Hours: My Active Orders 05/26/18 21:44 Oxygen Therapy [RC] ASDIRECTED Pulse Oximetry [RC] ASDIRECTED Chest 1V Frontal [CR] Stat Sodium Chloride 0.9% [Saline Flush] 10 ml FLUSH ASDIRECTED PRN Sodium Chloride 0.9% [Saline Flush] 2.5 ml FLUSH ASDIRECTED PRN Sodium Chloride 0.9% [Saline Flush] 2.5 ml FLUSH ASDIRECTED PRN Saline Lock Insert [OM.PC] Stat 05/26/18 22:45 Chest PE [Ang Chest] [CT] Stat - Assessment/Plan Last 24 Hours: My Active Orders 05/26/18 21:44 Oxygen Therapy [RC] ASDIRECTED Pulse Oximetry [RC] ASDIRECTED Chest 1V Frontal [CR] Stat Sodium Chloride 0.9% [Saline Flush] 10 ml FLUSH ASDIRECTED PRN Sodium Chloride 0.9% [Saline Flush] 2.5 ml FLUSH ASDIRECTED PRN Sodium Chloride 0.9% [Saline Flush] 2.5 ml FLUSH ASDIRECTED PRN Saline Lock Insert [OM.PC] Stat 05/26/18 22:45 Chest PE [Ang Chest] [CT] Stat
[2018-05-26 22:11] LABS: CHLORIDE,CL 102 mmol/L (98-107); SODIUM,NA 137 mmol/L (136-148)
[2018-05-26] MEDS ORDERED: Iopamidol 755 MG/ML 500 ML Multipack Bottle IVPUSH STA ×2 (23:16→23:20)
[2018-05-26] MEDS ORDERED: Famotidine 20 MG/2 ML SDV IVPUSH ONE (23:56)
--- NOTE | 2018-05-27 08:35 | PCM.HP ---
H&P History of Present Illness - General Date of Service: 05/27/18 Admit Problem/Dx: Admission Diagnosis/Problem Admission Diagnosis/Problem Atypical chest pain - History of Present Illness Initial Comments - Free Text/Narative: Rich Pineda is a 72 y/o male with a history of CAD s/p CABG and rheumatoid arthritis who presented to the ER complaining of high blood pressure and chest pain. The patient states that for the past couple of days he has been having some intermittent chest pain with radiation to left arm. Usually happening when he is active. Initially he thought it was acid reflux, however, it did not improve after taking PPI. Denies nausea, vomiting. No diaphoresis. Describes the pain as sharp lasting minutes. In the ER initial troponins were negative and a CT chest was negative for any pulmonary embolism. This morning, the patient denies any chest pain or left arm pain. Blood pressure this morning was SBP 120's. chest pain Pain Score (Numeric/FACES): 2 - Related Data Allergies/Adverse Reactions: Allergies Allergy/AdvReac Type Severity Reaction Status Date / Time No Known Allergies Allergy Verified 05/26/18 21:31 Home Medications: Home Meds Calcium Carbonate/Vitamin D3 [Calcium 250+D] 1 tab PO DAILY 05/17/16 [History] Metoprolol Tartrate [Lopressor] 25 mg PO BID 05/17/16 [History] [place]-3 Fatty Acids [Fish Oil] 300 mg PO DAILY 05/17/16 [History] predniSONE [Prednisone] 5 mg PO DAILY 05/17/16 [History] Aspirin 81 mg PO BEDTIME #0 07/02/16 [Rx] atorvaSTATin [Lipitor] 40 mg PO BEDTIME 10/26/16 [History] traZODone HCl [Trazodone HCl] 100 mg PO BEDTIME PRN 10/26/16 [History] Alendronate Sodium [Fosamax] 70 mg PO WEEKLY 01/09/17 [History] Meloxicam [Mobic] 15 mg PO DAILY 01/09/17 [History] Methotrexate 8 tab PO WEEKLY 01/09/17 [History] Clopidogrel [Plavix] 75 tab PO DAILY 05/26/18 [History] Etanercept [Enbrel] 25 ml IM ASDIRECTED 05/26/18 [History] amLODIPine Besylate [Amlodipine Besylate] 10 tab PO DAILY 05/26/18 [History] Past Medical History HEENT History: Reports: Other (See Below) Other HEENT History: wears glasses Cardiovascular History: Reports: Afib, Bypass, CAD, High Cholesterol, Hypertension, [place], Other (See Below) Respiratory History: Reports: Sleep Apnea Other Respiratory History: mild sleep apnea, does not use CPAP Gastrointestinal History: Reports: GERD, GI Bleed Genitourinary History: Reports: None Musculoskeletal History: Reports: Back Pain, Chronic, RA Other Musculoskeletal History: 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;both hands and right knee Neurological History: Reports: Migraines Psychiatric History: Reports: None Endocrine/Metabolic History: Reports: None Hematologic History: Reports: Anemia, Blood Transfusion(s) Other Hematologic History: 4 units of blood 2 to 3 months ago for GI bleed Immunologic History: Reports: None Oncologic (Cancer) History: Reports: None Dermatologic History: Reports: Other (See Below) Other Dermatologic History: Dermatitis - Infectious Disease History Infectious Disease History: Reports: None - Past Surgical History Head Surgeries/Procedures: Reports: None HEENT Surgical History: Reports: None Cardiovascular Surgical History: Reports: Carotid Endarterectomy, Coronary Artery Bypass Respiratory Surgical History: Reports: None GI Surgical History: Reports: Colonoscopy, EGD Male Surgical History: Reports: None Neurological Surgical History: Reports: None Musculoskeletal Surgical History: Reports: None Dermatological Surgical History: Reports: None Social & Family History - Family History Family Medical History: Noncontributory - Tobacco Use Smoking Status *Q: Never Smoker - Caffeine Use Caffeine Use: Reports: None - Recreational Drug Use Recreational Drug Use: No H&P Review of Systems - Review of Systems: Review Of Systems: ROS reveals no pertinent complaints other than HPI. Exam - Exam Exam: See Below - Vital Signs Vital Signs: Last Vital Signs Temp 37.1 C 05/27/18 08:00 Pulse 55 L 05/27/18 08:29 Resp 18 05/27/18 04:00 BP 129/54 L 05/27/18 08:29 Pulse Ox 92 L 05/27/18 08:00 Weight: 91.8 kg - Exam General: Alert, Oriented HEENT: Mucosa Moist & [place], Posterior Pharynx Clear, Pupils Equal, Pupils Reactive Lungs: Clear to Auscultation, Normal Respiratory Effort. No: Crackles, Wheezing Cardiovascular: Regular Rate, Regular Rhythm GI/Abdominal Exam: Normal Bowel Sounds, Soft, Non-Tender, No Distention Extremities: Other (Severe RA on upper extremities and fingers.) Skin: Warm, Dry Neurological: Cranial Nerves Intact - Patient Data Lab Results Last 24 hrs: Laboratory Results - last 24 hr 05/26/18 05/26/18 05/26/18 Range/Units 21:40 21:40 21:40 WBC 6.38 (4.0-11.0) K/uL RBC 4.13 L (4.50-5.90) M/uL Hgb 12.4 L (13.0-17.0) g/dL Hct 36.9 L (38.0-50.0) % MCV 89.3 (80.0-98.0) fL MCH 30.0 (27.0-32.0) pg MCHC 33.6 (31.0-37.0) g/dL RDW Std Deviation 44.4 (28.0-62.0) fl RDW Coeff of [place] 14 (11.0-15.0) % Plt Count 222 (150-400) K/uL MPV 9.30 (7.40-12.00) fL Neut % (Auto) 66.0 (48.0-80.0) % Lymph % (Auto) 23.4 (16.0-40.0) % [place] % (Auto) 8.2 (0.0-15.0) % Eos % (Auto) 2.2 (0.0-7.0) % Baso % (Auto) 0.2 (0.0-1.5) % Neut # (Auto) 4.2 (1.4-5.7) K/uL Lymph # (Auto) 1.5 (0.6-2.4) K/uL [place] # (Auto) 0.5 (0.0-0.8) K/uL Eos # (Auto) 0.1 (0.0-0.7) K/uL Baso # (Auto) 0.0 (0.0-0.1) K/uL Nucleated RBC % 0.0 /100WBC Nucleated RBCs # 0 K/uL INR 0.95 D-Dimer, Quantitative 3.18 H (0.0-0.52) mg/LFEU Sodium 137 (136-148) mmol/L Potassium 4.2 (3.5-5.1) mmol/L Chloride 102 (98-107) mmol/L Carbon Dioxide 27.6 (21.0-32.0) mmol/L BUN 19 H (7.0-18.0) mg/dL Creatinine 1.0 (0.8-1.3) mg/dL Est Cr Clr Drug Dosing 74.37 mL/min Estimated GFR (MDRD) > 60.0 ml/min Glucose 101 (74-106) mg/dL Calcium 9.4 (8.5-10.1) mg/dL Total Bilirubin 0.4 (0.2-1.0) mg/dL AST 16 (15-37) IU/L ALT 23 (14-63) IU/L Alkaline Phosphatase 103 (46-116) U/L Troponin I < 0.050 (0.000-0.056) ng/mL Total Protein 7.5 (6.4-8.2) g/dL Albumin 3.6 (3.4-5.0) g/dL Globulin 3.9 H (2.0-3.5) g/dL Albumin/Globulin Ratio 0.9 L (1.3-2.8) Lipase 254 (73-393) U/L Urine Color Urine Appearance Urine pH (5.0-8.0) Ur Specific [place] (1.001-1.035) Urine Protein (NEGATIVE) mg/dL Urine Glucose (UA) (NEGATIVE) mg/dL Urine Ketones (NEGATIVE) mg/dL Urine Occult Blood (NEGATIVE) Urine Nitrite (NEGATIVE) Urine Bilirubin (NEGATIVE) Urine Urobilinogen (<2.0) EU/dL Ur Leukocyte Esterase (NEGATIVE) Urine RBC (0-2/HPF) Urine WBC (0-5/HPF) Ur Epithelial Cells (NONE-FEW) Urine Bacteria (NEGATIVE) 05/27/18 05/27/18 Range/Units 00:25 03:40 WBC (4.0-11.0) K/uL RBC (4.50-5.90) M/uL Hgb (13.0-17.0) g/dL Hct (38.0-50.0) % MCV (80.0-98.0) fL MCH (27.0-32.0) pg MCHC (31.0-37.0) g/dL RDW Std Deviation (28.0-62.0) fl RDW Coeff of [place] (11.0-15.0) % Plt Count (150-400) K/uL MPV (7.40-12.00) fL Neut % (Auto) (48.0-80.0) % Lymph % (Auto) (16.0-40.0) % [place] % (Auto) (0.0-15.0) % Eos % (Auto) (0.0-7.0) % Baso % (Auto) (0.0-1.5) % Neut # (Auto) (1.4-5.7) K/uL Lymph # (Auto) (0.6-2.4) K/uL [place] # (Auto) (0.0-0.8) K/uL Eos # (Auto) (0.0-0.7) K/uL Baso # (Auto) (0.0-0.1) K/uL Nucleated RBC % /100WBC Nucleated RBCs # K/uL INR D-Dimer, Quantitative (0.0-0.52) mg/LFEU Sodium (136-148) mmol/L Potassium (3.5-5.1) mmol/L Chloride (98-107) mmol/L Carbon Dioxide (21.0-32.0) mmol/L BUN (7.0-18.0) mg/dL Creatinine (0.8-1.3) mg/dL Est Cr Clr Drug Dosing mL/min Estimated GFR (MDRD) ml/min Glucose (74-106) mg/dL Calcium (8.5-10.1) mg/dL Total Bilirubin (0.2-1.0) mg/dL AST (15-37) IU/L ALT (14-63) IU/L Alkaline Phosphatase (46-116) U/L Troponin I < 0.050 (0.000-0.056) ng/mL Total Protein (6.4-8.2) g/dL Albumin (3.4-5.0) g/dL Globulin (2.0-3.5) g/dL Albumin/Globulin Ratio (1.3-2.8) Lipase (73-393) U/L Urine Color YELLOW Urine Appearance CLEAR Urine pH 5.5 (5.0-8.0) Ur Specific [place] 1.010 (1.001-1.035) Urine Protein NEGATIVE (NEGATIVE) mg/dL Urine Glucose (UA) NEGATIVE (NEGATIVE) mg/dL Urine Ketones NEGATIVE (NEGATIVE) mg/dL Urine Occult Blood NEGATIVE (NEGATIVE) Urine Nitrite NEGATIVE (NEGATIVE) Urine Bilirubin NEGATIVE (NEGATIVE) Urine Urobilinogen 0.2 (<2.0) EU/dL Ur Leukocyte Esterase NEGATIVE (NEGATIVE) Urine RBC 0-1 (0-2/HPF) Urine WBC 0-1 (0-5/HPF) Ur Epithelial Cells RARE (NONE-FEW) Urine Bacteria RARE (NEGATIVE) Result Diagrams: 05/26/18 21:40 05/26/18 21:40 Problem List Initiated/Reviewed/Updated: Yes Orders Last 24hrs: Active Orders 24 hr Category Date Time Status Admission Status [Patient Status] [ADT] Stat ADT 05/26/18 23:52 Active Oxygen Therapy [RC] ASDIRECTED Care 05/26/18 21:44 Active Pulse Oximetry [RC] ASDIRECTED Care 05/26/18 21:44 Active Telemetry Monitoring [Cardiac Monitoring] [RC] Q8H Care 05/27/18 01:05 Active Heart Healthy Diet [DIET] Diet 05/27/18 Breakfast Active Chest 1V Frontal [CR] Stat Exams 05/26/18 21:44 Taken Chest PE [Ang Chest] [CT] Stat Exams 05/26/18 22:45 Taken TROPONIN I [CHEM] Q6H Lab 05/27/18 09:40 Ordered Clopidogrel [Plavix] Med 05/27/18 09:00 Active 75 mg PO DAILY Metoprolol Tartrate [Lopressor] Med 05/27/18 09:00 Active 25 mg PO BID Sodium Chloride 0.9% [Saline Flush] Med 05/26/18 21:44 Active 10 ml FLUSH ASDIRECTED PRN Sodium Chloride 0.9% [Saline Flush] Med 05/26/18 21:44 Active 2.5 ml FLUSH ASDIRECTED PRN Sodium Chloride 0.9% [Saline Flush] Med 05/26/18 21:44 Active 2.5 ml FLUSH ASDIRECTED PRN amLODIPine [Norvasc] Med 05/27/18 09:00 Active 10 mg PO DAILY atorvaSTATin [Lipitor] Med 05/27/18 21:00 Active 40 mg PO BEDTIME Saline Lock Insert [OM.PC] Stat Oth 05/26/18 21:44 Ordered Medication Orders Amlodipine Besylate (Norvasc) 10 mg PO DAILY [facility] Last Admin: 05/27/18 08:28 Dose: Atorvastatin Calcium (Lipitor) 40 mg PO BEDTIME [facility] Clopidogrel Bisulfate (Plavix) 75 mg PO DAILY [facility] Last Admin: 05/27/18 08:29 Dose: 75 mg Metoprolol Tartrate (Lopressor) 25 mg PO BID [facility] Last Admin: 05/27/18 08:29 Dose: 25 mg Sodium Chloride (Saline Flush) 2.5 ml FLUSH ASDIRECTED PRN PRN Reason: Keep Vein Open Sodium Chloride (Saline Flush) 10 ml FLUSH ASDIRECTED PRN PRN Reason: Keep Vein Open Sodium Chloride (Saline Flush) 2.5 ml FLUSH ASDIRECTED PRN PRN Reason: Keep Vein Open Assessment/Plan Comment:: 1. Atypical chest pain- multifactorial due to history of RA and extensive CAD. Troponins have been negative so far. Pending third troponin. Continue home medications for his CAD. Patient will need an outpatient stress test. 2. Rheumatoid arthritis- continue home medications. 3. Coronary artery disease- continue home medications. 4. Hypertensive urgency- resolved.
[2018-05-27] MEDS ORDERED: SIMVASTATIN PO SCH (09:00)
[2018-05-27] MEDS ORDERED: amLODIPine 5 MG Tab PO SCH (09:00)
[2018-05-27] MEDS ORDERED: Metoprolol Tartrate 25 MG Tab PO SCH (09:00)
[2018-05-27] MEDS ORDERED: Clopidogrel 75 MG Tab PO SCH (09:00)
--- NOTE | 2018-05-27 11:13 | CR ---
EXAM DATE: 05/26/18 PATIENT'S AGE: 72 Patient: PAUL CUETO Facility: [place], [place] Site . Site : [id number] Study: XRay Chest [id number] 10:10:57 PM Ordering Physician: Monster Juarez Final Report: INDICATION: Chest pain, left arm pain TECHNIQUE: Chest radiograph 1 view COMPARISON: 10/26/16 FINDINGS: Mediastinum: The mediastinum is normal in appearance. The heart silhouette is normal in size and morphology. The patient is status post coronary artery bypass surgery. Lung: Both lungs are unremarkable in appearance. No sign of pleural effusion seen. No pneumothorax is identified. Musculoskeletal: Unremarkable for age. IMPRESSION: 1. No acute cardiopulmonary disease is seen. Dictated by: Domingo Alegre MD @ 05/26/2018 22:12:26 (Electronic Signature) Report Signed by Proxy. [facility]
--- NOTE | 2018-05-27 11:15 | CT ---
EXAM DATE: 05/26/18 PATIENT'S AGE: 72 Patient: PAUL NORY Facility: [place], [place] Site . Site : 1945 Study: CT Chest Angio [id number] 11:22:36 PM Ordering Physician: Monster Juarez Final Report: INDICATION: Chest pain and elevated D-dimer TECHNIQUE: CT chest pulmonary angiogram acquired with IV contrast. 50 cc Isovue 370 COMPARISON: None FINDINGS: Cardiovascular structures: Normal vascular enhancement of the pulmonary arteries , no sign of pulmonary embolism. Heart size is normal. No sign of aneurysm or dissection in the thoracic aorta. Mediastinum and davis: No mass or adenopathy. Lungs: Clear. Pleura and pericardium: No effusions. Chest wall and axilla: No mass or adenopathy. Bones: No significant findings. Upper abdomen: Unremarkable. IMPRESSION: Unremarkable chest CT angiogram. Specifically, no pulmonary embolism, aortic dissection, or pneumonia. Dictated by Paul Lindsey MD @ 05/26/2018 11:42:13 PM Please note that all CT scans at this facility use dose modulation, iterative reconstruction, and/or weight-based dosing when appropriate to reduce radiation dose to as low as reasonably achievable. Dictated by: Paul Lindsey MD @ 05/26/2018 23:42:24 (Electronic Signature) Report Signed by Proxy. GUTH[facility]ORTLAND MEDICAL CENTERLizbet
[2018-05-27 11:41] VITALS: BP 129/66
--- NOTE | 2018-05-27 11:55 | PCM.DCSUM1 ---
Discharge Summary - Hospital Course Free Text/Narrative:: Admission date:05/26/18 Discharge date: 05/27/18 Admission diagnosis: 1. Hypertensive urgency 2. Atypical chest pain 3. PMH CAD s/p CABG and rheumatoid arthritis Discharge diagnosis: 1. Acute coronary syndrome ruled out, serial troponins negative 2. Hypertensive urgency, resolved. 3. PMH CAD s/p CABG and rheumatoid arthritis Procedures: none Consults: none Hospital course: Rich Pineda is a 72 y/o male with history of CAD s/p CABG and rheumatoid arthritis who presented to the ER complaining of high blood pressure and chest pain. He was admitted for ACS rule out. The patient's blood pressure normalized in the ER and overnight. Troponins x3 were negative. Patient denied any chest pain or radiation to neck/left arm. He wad discharged with an order for an outpatient cardiac stress test and instructions to follow-up with his primary care provider and manager asset. The patient did not have an LEEROY inhibitor in his home medications and stated that it was discontinued as outpatient. Recommend re-evaluation to start an LEEROY inhibitor due to his cardiac history. Follow-up: 1. Follow-up with your primary care provider and manager asset within 1-2 weeks. - Discharge Data Discharge Date: 05/27/18 Discharge Disposition: Home, Self-Care 01 Condition: Fair - Patient Instructions Diet: Heart Healthy Diet Activity: As Tolerated Notify Provider of: Fever, Increased Pain, Swelling and Redness, Nausea and/or Vomiting Other/Special Instructions: If you have worsening chest pain you can take nitroglycerin and seek medical care. Follow-up with your PCP and manager asset within 1-2 weeks. - Discharge Plan *PRESCRIPTION DRUG MONITORING PROGRAM REVIEWED*: Not Applicable *COPY OF PRESCRIPTION DRUG MONITORING REPORT IN PATIENT MARQUITA: Not Applicable Home Medications: Home Meds Calcium Carbonate/Vitamin D3 [Calcium 250+D] 1 tab PO DAILY 05/17/16 [History] Metoprolol Tartrate [Lopressor] 25 mg PO BID 05/17/16 [History] [place]-3 Fatty Acids [Fish Oil] 300 mg PO DAILY 05/17/16 [History] predniSONE [Prednisone] 5 mg PO DAILY 05/17/16 [History] Aspirin 81 mg PO BEDTIME #0 07/02/16 [Rx] atorvaSTATin [Lipitor] 40 mg PO BEDTIME 10/26/16 [History] traZODone HCl [Trazodone HCl] 100 mg PO BEDTIME PRN 10/26/16 [History] Alendronate Sodium [Fosamax] 70 mg PO WEEKLY 01/09/17 [History] Meloxicam [Mobic] 15 mg PO DAILY 01/09/17 [History] Methotrexate 8 tab PO WEEKLY 01/09/17 [History] Clopidogrel [Plavix] 75 tab PO DAILY 05/26/18 [History] Etanercept [Enbrel] 25 ml IM ASDIRECTED 05/26/18 [History] amLODIPine Besylate [Amlodipine Besylate] 10 tab PO DAILY 05/26/18 [History] Forms: ED Department Discharge Referrals: Esperanza Berry MD [Ordering Only Provider] - PCP,None [Primary Care Provider] - - Discharge Summary/Plan Comment DC Time >30 min.: No - Patient Data Vitals - Most Recent: Last Vital Signs Temp 36.4 C 05/27/18 11:40 Pulse 63 05/27/18 11:40 Resp 16 05/27/18 11:40 BP 129/66 05/27/18 11:40 Pulse Ox 92 L 05/27/18 11:40 Weight - Most Recent: 91.8 kg I&O - Last 24 hours: Intake & Output 05/26/18 05/27/18 05/27/18 22:59 06:59 14:59 Intake Total 200 Output Total 600 Balance -400 Lab Results - Last 24 hrs: Laboratory Results - last 24 hr 05/26/18 05/26/18 05/26/18 Range/Units 21:40 21:40 21:40 WBC 6.38 (4.0-11.0) K/uL RBC 4.13 L (4.50-5.90) M/uL Hgb 12.4 L (13.0-17.0) g/dL Hct 36.9 L (38.0-50.0) % MCV 89.3 (80.0-98.0) fL MCH 30.0 (27.0-32.0) pg MCHC 33.6 (31.0-37.0) g/dL RDW Std Deviation 44.4 (28.0-62.0) fl RDW Coeff of Bonny 14 (11.0-15.0) % Plt Count 222 (150-400) K/uL MPV 9.30 (7.40-12.00) fL Neut % (Auto) 66.0 (48.0-80.0) % Lymph % (Auto) 23.4 (16.0-40.0) % Nye % (Auto) 8.2 (0.0-15.0) % Eos % (Auto) 2.2 (0.0-7.0) % Baso % (Auto) 0.2 (0.0-1.5) % Neut # (Auto) 4.2 (1.4-5.7) K/uL Lymph # (Auto) 1.5 (0.6-2.4) K/uL Nye # (Auto) 0.5 (0.0-0.8) K/uL Eos # (Auto) 0.1 (0.0-0.7) K/uL Baso # (Auto) 0.0 (0.0-0.1) K/uL Nucleated RBC % 0.0 /100WBC Nucleated RBCs # 0 K/uL INR 0.95 D-Dimer, Quantitative 3.18 H (0.0-0.52) mg/LFEU Sodium 137 (136-148) mmol/L Potassium 4.2 (3.5-5.1) mmol/L Chloride 102 (98-107) mmol/L Carbon Dioxide 27.6 (21.0-32.0) mmol/L BUN 19 H (7.0-18.0) mg/dL Creatinine 1.0 (0.8-1.3) mg/dL Est Cr Clr Drug Dosing 74.37 mL/min Estimated GFR (MDRD) > 60.0 ml/min Glucose 101 (74-106) mg/dL Calcium 9.4 (8.5-10.1) mg/dL Total Bilirubin 0.4 (0.2-1.0) mg/dL AST 16 (15-37) IU/L ALT 23 (14-63) IU/L Alkaline Phosphatase 103 (46-116) U/L Troponin I < 0.050 (0.000-0.056) ng/mL Total Protein 7.5 (6.4-8.2) g/dL Albumin 3.6 (3.4-5.0) g/dL Globulin 3.9 H (2.0-3.5) g/dL Albumin/Globulin Ratio 0.9 L (1.3-2.8) Lipase 254 (73-393) U/L Urine Color Urine Appearance Urine pH (5.0-8.0) Ur Specific [place] (1.001-1.035) Urine Protein (NEGATIVE) mg/dL Urine Glucose (UA) (NEGATIVE) mg/dL Urine Ketones (NEGATIVE) mg/dL Urine Occult Blood (NEGATIVE) Urine Nitrite (NEGATIVE) Urine Bilirubin (NEGATIVE) Urine Urobilinogen (<2.0) EU/dL Ur Leukocyte Esterase (NEGATIVE) Urine RBC (0-2/HPF) Urine WBC (0-5/HPF) Ur Epithelial Cells (NONE-FEW) Urine Bacteria (NEGATIVE) 05/27/18 05/27/18 05/27/18 Range/Units 00:25 03:40 09:52 WBC (4.0-11.0) K/uL RBC (4.50-5.90) M/uL Hgb (13.0-17.0) g/dL Hct (38.0-50.0) % MCV (80.0-98.0) fL MCH (27.0-32.0) pg MCHC (31.0-37.0) g/dL RDW Std Deviation (28.0-62.0) fl RDW Coeff of Bonny (11.0-15.0) % Plt Count (150-400) K/uL MPV (7.40-12.00) fL Neut % (Auto) (48.0-80.0) % Lymph % (Auto) (16.0-40.0) % Nye % (Auto) (0.0-15.0) % Eos % (Auto) (0.0-7.0) % Baso % (Auto) (0.0-1.5) % Neut # (Auto) (1.4-5.7) K/uL Lymph # (Auto) (0.6-2.4) K/uL Nye # (Auto) (0.0-0.8) K/uL Eos # (Auto) (0.0-0.7) K/uL Baso # (Auto) (0.0-0.1) K/uL Nucleated RBC % /100WBC Nucleated RBCs # K/uL INR D-Dimer, Quantitative (0.0-0.52) mg/LFEU Sodium (136-148) mmol/L Potassium (3.5-5.1) mmol/L Chloride (98-107) mmol/L Carbon Dioxide (21.0-32.0) mmol/L BUN (7.0-18.0) mg/dL Creatinine (0.8-1.3) mg/dL Est Cr Clr Drug Dosing mL/min Estimated GFR (MDRD) ml/min Glucose (74-106) mg/dL Calcium (8.5-10.1) mg/dL Total Bilirubin (0.2-1.0) mg/dL AST (15-37) IU/L ALT (14-63) IU/L Alkaline Phosphatase (46-116) U/L Troponin I < 0.050 < 0.050 (0.000-0.056) ng/mL Total Protein (6.4-8.2) g/dL Albumin (3.4-5.0) g/dL Globulin (2.0-3.5) g/dL Albumin/Globulin Ratio (1.3-2.8) Lipase (73-393) U/L Urine Color YELLOW Urine Appearance CLEAR Urine pH 5.5 (5.0-8.0) Ur Specific [place] 1.010 (1.001-1.035) Urine Protein NEGATIVE (NEGATIVE) mg/dL Urine Glucose (UA) NEGATIVE (NEGATIVE) mg/dL Urine Ketones NEGATIVE (NEGATIVE) mg/dL Urine Occult Blood NEGATIVE (NEGATIVE) Urine Nitrite NEGATIVE (NEGATIVE) Urine Bilirubin NEGATIVE (NEGATIVE) Urine Urobilinogen 0.2 (<2.0) EU/dL Ur Leukocyte Esterase NEGATIVE (NEGATIVE) Urine RBC 0-1 (0-2/HPF) Urine WBC 0-1 (0-5/HPF) Ur Epithelial Cells RARE (NONE-FEW) Urine Bacteria RARE (NEGATIVE) Med Orders - Current: Current Medications Amlodipine Besylate (Norvasc) 10 mg PO DAILY [facility] Last Admin: 05/27/18 08:28 Dose: Not Given Atorvastatin Calcium (Lipitor) 40 mg PO BEDTIME [facility] Clopidogrel Bisulfate (Plavix) 75 mg PO DAILY [facility] Last Admin: 05/27/18 08:29 Dose: 75 mg Metoprolol Tartrate (Lopressor) 25 mg PO BID [facility] Last Admin: 05/27/18 08:29 Dose: 25 mg Sodium Chloride (Saline Flush) 2.5 ml FLUSH ASDIRECTED PRN PRN Reason: Keep Vein Open Sodium Chloride (Saline Flush) 10 ml FLUSH ASDIRECTED PRN PRN Reason: Keep Vein Open Sodium Chloride (Saline Flush) 2.5 ml FLUSH ASDIRECTED PRN PRN Reason: Keep Vein Open Discontinued Medications Aspirin (Aspirin) 324 mg PO ONETIME ONE Stop: 05/26/18 21:45 Last Admin: 05/26/18 21:54 Dose: 324 mg Famotidine (Pepcid) 20 mg IVPUSH ONETIME ONE Stop: 05/26/18 23:57 Last Admin: 05/27/18 00:01 Dose: 20 mg Sodium Chloride (Normal Saline) 1,000 mls @ 999 mls/hr IV BOLUS ONE Stop: 05/26/18 22:44 Last Admin: 05/26/18 21:53 Dose: 999 mls/hr Iopamidol (Isovue Multipack-370 (76%)) 50 ml IVPUSH ONETIME STA Stop: 05/26/18 23:21 Last Admin: 05/26/18 23:21 Dose: 50 ml Nitroglycerin (Nitrostat) 0.4 mg SL ONETIME ONE Stop: 05/26/18 21:45 Last Admin: 05/26/18 21:53 Dose: 0.4 mg Non-Formulary Medication (Simvastatin [Zocor]) 80 tab PO DAILY ALISON
[2018-05-27] MEDS ORDERED: atorvaSTATin 40 MG Tab PO SCH (21:00)
== END 2018-05-27 13:00 | disposition home or self-care (01) ==
LOC: MW.ED 21:29 → MW.MS 23:52
PROVIDERS: ADMIT Internal Medicine; ATTEND Internal Medicine
DX: R07.89 Other chest pain (principal); I16.0 Hypertensive urgency; I10 Essential (primary) hypertension; E78.00 Pure hypercholesterolemia, unspecified; I25.10 Atherosclerotic heart disease of native coronary artery without angina pectoris; I48.91 Unspecified atrial fibrillation; K21.9 Gastro-esophageal reflux disease without esophagitis; M06.9 Rheumatoid arthritis, unspecified; Z95.1 Presence of aortocoronary bypass graft
CPT/HCPCS: 36415; 71045; 71275; 80053; 81001; 83690; 84484; 85025; 85379; 85610; 93005; 96361; 96374; 99285; A9270; G0378; J3490; J7040; Q9967; 99283

== ENCOUNTER 2019-12-14 15:03 | Observation (INO) | payer OTHER, MEDICARE, BC ==
[2019-12-14] MEDS ORDERED: Sodium Chloride 0.9% 1,000 ML IV ONE (15:17)
--- NOTE | 2019-12-14 15:22 | EDM.PDOC ---
ED HPI GENERAL MEDICAL PROBLEM - General Chief Complaint: Chest Pain Stated Complaint: CHEST PAIN/FAINT FEELING Time Seen by Provider: 12/14/19 15:09 Source of Information: Reports: Patient, Old Records, RN Notes Reviewed History Limitations: Reports: No Limitations - History of Present Illness INITIAL COMMENTS - FREE TEXT/NARRATIVE: This is a 74-year-old male who presents the emergency room with a chief complaint of severe shortness of breath and dyspnea on exertion. Patient states that he has had a triple bypass and this is how he felt prior to the bypass. Patient denies chest pain. States he is severely weak when he tries to do anything Onset: Today Duration: Hour(s):, Intermittent Quality: Reports: Same as Previous Episode Severity: Moderate Improves with: Reports: None Worsens with: Reports: None Associated Symptoms: Reports: Nausea/Vomiting, Weakness Treatments RETURN AGENT AIRPORT: Reports: Other Medication(s) - Related Data Allergies Allergy/AdvReac Type Severity Reaction Status Date / Time No Known Allergies Allergy Verified 12/14/19 15:20 Home Meds: Home Meds Calcium Carbonate/Vitamin D3 [Calcium 250+D] 1 tab PO BID 05/17/16 [History] Metoprolol Tartrate [Lopressor] 25 mg PO BID 05/17/16 [History] predniSONE [Prednisone] 5 mg PO DAILY 05/17/16 [History] atorvaSTATin [Lipitor] 40 mg PO BEDTIME 10/26/16 [History] traZODone HCl [Trazodone HCl] 100 mg PO BEDTIME PRN 10/26/16 [History] Alendronate Sodium [Fosamax] 70 mg PO WEEKLY 01/09/17 [History] Methotrexate 8 tab PO WEEKLY 01/09/17 [History] Clopidogrel [Plavix] 75 tab PO DAILY 05/26/18 [History] Etanercept [Enbrel] 25 ml IM ASDIRECTED 05/26/18 [History] amLODIPine Besylate [Amlodipine Besylate] 10 tab PO DAILY 05/26/18 [History] Albuterol Sulfate [Albuterol Sulfate Hfa] 2 puff INH Q4HR PRN 12/14/19 [History] Aspirin 81 mg PO DAILY 12/14/19 [History] Fish Oil/[place]-3 Fatty Acids [Fish Oil 1,000 MG] 1,000 mg PO DAILY 12/14/19 [ History] Lisinopril [Zestril] 5 mg PO BID 12/14/19 [History] Pantoprazole [ProTONIX] 40 mg PO DAILY 12/14/19 [History] Tamsulosin [Flomax] 0.4 mg PO DAILY 12/14/19 [History] Past Medical History HEENT History: Reports: Other (See Below) Other HEENT History: wears glasses Cardiovascular History: Reports: Afib, Bypass, CAD, High Cholesterol, Hypertension, NV, Other (See Below) Respiratory History: Reports: Sleep Apnea Other Respiratory History: mild sleep apnea, does not use CPAP Gastrointestinal History: Reports: GERD, GI Bleed Genitourinary History: Reports: None Musculoskeletal History: Reports: Back Pain, Chronic, RA Other Musculoskeletal History: 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;both hands and right knee Neurological History: Reports: Migraines Psychiatric History: Reports: None Endocrine/Metabolic History: Reports: None Hematologic History: Reports: Anemia, Blood Transfusion(s) Other Hematologic History: 4 units of blood 2 to 3 months ago for GI bleed Immunologic History: Reports: None Oncologic (Cancer) History: Reports: None Dermatologic History: Reports: Other (See Below) Other Dermatologic History: Dermatitis - Infectious Disease History Infectious Disease History: Reports: None - Past Surgical History Head Surgeries/Procedures: Reports: None HEENT Surgical History: Reports: None Cardiovascular Surgical History: Reports: Carotid Endarterectomy, Coronary Artery Bypass Respiratory Surgical History: Reports: None GI Surgical History: Reports: Colonoscopy, EGD Male Surgical History: Reports: None Neurological Surgical History: Reports: None Musculoskeletal Surgical History: Reports: None Dermatological Surgical History: Reports: None Social & Family History - Family History Family Medical History: Noncontributory - Caffeine Use Caffeine Use: Reports: None ED ROS GENERAL - Review of Systems Review Of Systems: See Below Constitutional: Reports: Weakness HEENT: Reports: No Symptoms Respiratory: Reports: No Symptoms Cardiovascular: Reports: No Symptoms Endocrine: Reports: No Symptoms, Fatigue GI/Abdominal: Reports: No Symptoms : Reports: No Symptoms Musculoskeletal: Reports: No Symptoms Skin: Reports: No Symptoms Neurological: Reports: No Symptoms Psychiatric: Reports: No Symptoms Hematologic/Lymphatic: Reports: No Symptoms Immunologic: Reports: No Symptoms ED EXAM, GENERAL - Physical Exam Exam: See Below Exam Limited By: No Limitations General Appearance: Alert, WD/WN, No Apparent Distress Eye Exam: Bilateral Eye: Normal Fundi, Normal Inspection Ears: Normal External Exam, Normal Canal, Hearing Grossly Normal, Normal TMs Ear Exam: Bilateral Ear: Auricle Normal, Canal Normal, TM normal Nose: Normal Inspection, Normal Mucosa, No Blood Throat/Mouth: Normal Inspection, Normal Lips, Normal Teeth, Normal Oropharynx Head: Atraumatic, Normocephalic Neck: Normal Inspection, Supple, Non-Tender, Full Range of Motion Respiratory/Chest: No Respiratory Distress, Lungs Clear, Normal Breath Sounds Cardiovascular: Normal Peripheral Pulses, Regular Rate, Rhythm, No Edema, No JVD , No Murmur, No Rub GI/Abdominal: Normal Bowel Sounds, Soft, Non-Tender, No Distention, No Abnormal Bruit (Male) Exam: Deferred Rectal (Males) Exam: Deferred Back Exam: Normal Inspection, Full Range of Motion Extremities: Normal Inspection, Normal Range of Motion, No Pedal Edema, Normal Capillary Refill Neurological: Alert, Oriented, CN II-XII Intact, Normal Cognition, Normal Reflexes, No Motor/Sensory Deficits Psychiatric: Normal Affect, Normal Mood Skin Exam: Warm, Dry, Intact, Normal Color, No Rash, Cool Lymphatic: No Adenopathy Course - Vital Signs Text/Narrative:: 74-year-old male presents the emergency room with severe weakness and dyspnea. Patient has strong cardiac history. Patient states last time he was this week he had to have a triple bypass. Patient's cardiac enzymes are normal patient's EKG is normal. I discussed the case with the Dr. Farrar admitting physician. She will agree to place the patient in observation. Diagnosis coronary artery disease rule out near syncope. Last Recorded V/S: Last Vital Signs Temp 97.9 F 12/14/19 15:03 Pulse 53 L 12/14/19 16:30 Resp 18 12/14/19 16:30 BP 125/53 L 12/14/19 16:30 Pulse Ox 94 L 12/14/19 16:30 - Orders/Labs/Meds Orders: Active Orders 24 hr Category Date Time Status Sodium Chloride 0.9% [Normal Saline] 1,000 ml Med 12/14/19 15:17 Active IV .Bolus Medication Orders Sodium Chloride (Normal Saline) 1,000 mls @ 125 mls/hr IV .Bolus ONE Stop: 12/14/19 23:16 Last Admin: 12/14/19 15:24 Dose: 125 mls/hr Labs: Laboratory Tests 12/14/19 12/14/19 12/14/19 Range/Units 15:10 15:10 15:10 WBC 6.21 (4.0-11.0) K/uL RBC 4.31 L (4.50-5.90) M/uL Hgb 12.6 L (13.0-17.0) g/dL Hct 38.7 (38.0-50.0) % MCV 89.8 (80.0-98.0) fL MCH 29.2 (27.0-32.0) pg MCHC 32.6 (31.0-37.0) g/dL RDW Std Deviation 48.9 (28.0-62.0) fl RDW Coeff of Bonny 15 (11.0-15.0) % Plt Count 179 (150-400) K/uL MPV 9.50 (7.40-12.00) fL Neut % (Auto) 74.6 (48.0-80.0) % Lymph % (Auto) 19.6 (16.0-40.0) % Yates % (Auto) 4.8 (0.0-15.0) % Eos % (Auto) 0.8 (0.0-7.0) % Baso % (Auto) 0.2 (0.0-1.5) % Neut # (Auto) 4.6 (1.4-5.7) K/uL Lymph # (Auto) 1.2 (0.6-2.4) K/uL [place] # (Auto) 0.3 (0.0-0.8) K/uL Eos # (Auto) 0.1 (0.0-0.7) K/uL Baso # (Auto) 0.0 (0.0-0.1) K/uL Nucleated RBC % 0.0 /100WBC Nucleated RBCs # 0 K/uL INR 0.96 Sodium 137 (136-148) mmol/L Potassium 4.3 (3.5-5.1) mmol/L Chloride 100 (98-107) mmol/L Carbon Dioxide 27.8 (21.0-32.0) mmol/L BUN 25 H (7.0-18.0) mg/dL Creatinine 1.8 H (0.8-1.3) mg/dL Est Cr Clr Drug Dosing 40.12 mL/min Estimated GFR (MDRD) 37.2 ml/min Glucose 125 H (74-106) mg/dL Calcium 8.5 (8.5-10.1) mg/dL Total Bilirubin 0.6 (0.2-1.0) mg/dL AST 19 (15-37) IU/L ALT 28 (14-63) IU/L Alkaline Phosphatase 85 (46-116) U/L Troponin I < 0.050 (0.000-0.056) ng/mL Total Protein 7.1 (6.4-8.2) g/dL Albumin 3.7 (3.4-5.0) g/dL Globulin 3.4 (2.6-4.0) g/dL Albumin/Globulin Ratio 1.1 (0.9-1.6) Meds: Medications Generic Name Dose Route Start Last Admin Trade Name Freq PRN Reason Stop Dose Admin Sodium Chloride 1,000 mls @ 125 mls/hr 12/14/19 15:17 12/14/19 15:24 Normal Saline IV 12/14/19 23:16 125 mls/hr .Bolus ONE Administration Discontinued Medications Generic Name Dose Route Start Last Admin Trade Name Freq PRN Reason Stop Dose Admin Losartan Potassium 50 mg 12/14/19 15:48 Cozaar PO 12/14/19 15:49 ONETIME ONE Departure - Departure Time of Disposition: 16:37 Disposition: Refer to Observation Condition: Good Clinical Impression: Acute coronary syndrome Referrals: PCP,Unobtain [Primary Care Provider] - Forms: ED Department Discharge Sepsis Event Note - Focused Exam Vital Signs: Vital Signs Temp Pulse Resp BP Pulse Ox 12/14/19 16:30 53 L 18 125/53 L 94 L 12/14/19 16:00 52 L 18 128/56 L 94 L 12/14/19 15:15 54 L 19 110/61 95 12/14/19 15:03 97.9 F 57 L 20 143/61 H 93 L Date Exam was Performed: 12/14/19 Time Exam was Performed: 16:35 - My Orders Last 24 Hours: My Active Orders 12/14/19 15:17 Sodium Chloride 0.9% [Normal Saline] 1,000 ml IV .Bolus - Assessment/Plan Last 24 Hours: My Active Orders 12/14/19 15:17 Sodium Chloride 0.9% [Normal Saline] 1,000 ml IV .Bolus
[2019-12-14 15:46] LABS: BLOOD UREA NITROGEN,BUN 25 mg/dL (7.0-18.0); CARBON DIOXIDE,CO2 27.8 mmol/L (21.0-32.0); CHLORIDE,CL 100 mmol/L (98-107); GLUCOSE RANDOM 125 mg/dL (74-106); POTASSIUM,K 4.3 mmol/L (3.5-5.1); SODIUM,NA 137 mmol/L (136-148)
[2019-12-14] MEDS ORDERED: Losartan 50 MG Tab PO ONE (15:48)
--- NOTE | 2019-12-14 16:10 | CR ---
Chest: Portable view of the chest was obtained. Comparison: Prior chest x-ray of 05/26/18. Heart size and mediastinum are within normal limits for portable technique. Sternotomy wires are seen. Lungs are clear with no acute parenchymal change. Bony structures are grossly intact. Impression: 1. Nothing acute is appreciated on portable chest x-ray. Diagnostic code #1 This report was dictated in MDT
[2019-12-14] MEDS ORDERED: Lactated Ringers 1,000 ML IV ONE (18:04)
[2019-12-14] MEDS ORDERED: Albuterol/Ipratropium 3.0-0.5 MG/3 ML Neb Soln NEB PRN (18:04)
[2019-12-14] MEDS ORDERED: Morphine 2 MG/ML Syringe IVPUSH PRN (18:04)
[2019-12-14] MEDS ORDERED: Acetaminophen 325 MG Tab PO PRN (18:04)
--- NOTE | 2019-12-14 18:10 | PCM.HP.2 ---
H&P History of Present Illness - General Date of Service: 12/14/19 Admit Problem/Dx: Admission Diagnosis/Problem Admission Diagnosis/Problem Chest pain with high risk for cardiac etiology - History of Present Illness Initial Comments - Free Text/Narative: Patient is a 74 y/o M with remote h/o CABG, HTN, RA, anemia who comes in secondary to SOB on exertion, pre-syncope and generalized weakness for past few days. Patient states that he "felt similar symptoms before his CABG". Patient sttaes he had stopped taking his Plavix for 2 days and later cut the dose to held for next 2 days before resuming normal dose due to frequent nose bleeds. Patient states his HR is usally in 40s when he checks at home, takes B- blockers. States he may not be drinking as much waster for past few days. In the ER 1st troponin was negative, EKG unremarkable for acute ACS. Patient is being admitted for ACS rule out. Patient denied chest pain ,palpitations, LOC, N /V/D, abdominal pain, neurological deficits, urinary symptoms Onset of Symptoms: Reports: Gradual Duration of Symptoms: Reports: Day(s): - Related Data Allergies/Adverse Reactions: Allergies Allergy/AdvReac Type Severity Reaction Status Date / Time No Known Allergies Allergy Verified 12/14/19 19:03 Home Medications: Home Meds Calcium Carbonate/Vitamin D3 [Calcium 250+D] 1 tab PO DAILY 05/17/16 [History] predniSONE [Prednisone] 5 mg PO DAILY 05/17/16 [History] atorvaSTATin [Lipitor] 40 mg PO BEDTIME 10/26/16 [History] traZODone HCl [Trazodone HCl] 100 mg PO BEDTIME PRN 10/26/16 [History] Alendronate Sodium [Fosamax] 70 mg PO WEEKLY 01/09/17 [History] Methotrexate 8 tab PO FOSTER 01/09/17 [History] Clopidogrel [Plavix] 75 tab PO DAILY 05/26/18 [History] Etanercept [Enbrel] 25 ml IM WEEKLY 05/26/18 [History] amLODIPine Besylate [Amlodipine Besylate] 10 mg PO DAILY 05/26/18 [History] Albuterol Sulfate [Albuterol Sulfate Hfa] 2 puff INH Q4HR PRN 12/14/19 [History] Aspirin 81 mg PO DAILY 12/14/19 [History] Fish Oil/[place]-3 Fatty Acids [Fish Oil 1,000 MG] 1,000 mg PO DAILY 12/14/19 [ History] Pantoprazole [ProTONIX] 40 mg PO DAILY 12/14/19 [History] Tamsulosin [Flomax] 0.4 mg PO DAILY 12/14/19 [History] Metoprolol Tartrate [Lopressor] 12.5 mg PO BID #30 tablet 12/15/19 [Rx] lisinopriL [Lisinopril] 10 mg PO BID 30 Days #30 tablet 12/15/19 [Rx] Past Medical History HEENT History: Reports: Other (See Below) Other HEENT History: wears glasses Cardiovascular History: Reports: Afib, Bypass, CAD, High Cholesterol, Hypertension, PR, Other (See Below) Respiratory History: Reports: Sleep Apnea Other Respiratory History: mild sleep apnea, does not use CPAP Gastrointestinal History: Reports: GERD, GI Bleed Genitourinary History: Reports: None Musculoskeletal History: Reports: Back Pain, Chronic, RA Other Musculoskeletal History: 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;both hands and right knee Neurological History: Reports: Migraines Psychiatric History: Reports: None Endocrine/Metabolic History: Reports: None Hematologic History: Reports: Anemia, Blood Transfusion(s) Other Hematologic History: 4 units of blood 2 to 3 months ago for GI bleed Immunologic History: Reports: None Oncologic (Cancer) History: Reports: None Dermatologic History: Reports: Other (See Below) Other Dermatologic History: Dermatitis - Infectious Disease History Infectious Disease History: Reports: None - Past Surgical History Head Surgeries/Procedures: Reports: None HEENT Surgical History: Reports: None Cardiovascular Surgical History: Reports: Carotid Endarterectomy, Coronary Artery Bypass Respiratory Surgical History: Reports: None GI Surgical History: Reports: Colonoscopy, EGD Male Surgical History: Reports: None Neurological Surgical History: Reports: None Musculoskeletal Surgical History: Reports: None Dermatological Surgical History: Reports: None Social & Family History - Family History Family Medical History: Noncontributory - Tobacco Use Smoking Status *Q: Former Smoker Used Tobacco, but Quit: Yes Month/Year Tobacco Last Used: "5 or 6 years ago" - Caffeine Use Caffeine Use: Reports: None - Recreational Drug Use Recreational Drug Use: No H&P Review of Systems - Review of Systems: Review Of Systems: Comprehensive ROS is negative, except as noted in HPI. General: Reports: Weakness, Fatigue Cardiovascular: Reports: Dyspnea on Exertion, Lightheadedness. Denies: Chest Pain, Palpitations, Orthopnea, PND, Edema, Syncope Exam - Exam Exam: See Below - Vital Signs Vital Signs: Last Vital Signs Temp 36.9 C 12/14/19 17:45 Pulse 49 L 12/14/19 17:45 Resp 18 12/14/19 17:45 BP 138/64 12/14/19 17:45 Pulse Ox 94 L 12/14/19 17:45 Weight: 89.5 kg - Exam General: Alert, Oriented, Cooperative HEENT: Conjunctiva Clear Neck: Supple, Trachea Midline Lungs: Clear to Auscultation, Normal Respiratory Effort. No: Crackles Cardiovascular: Regular Rhythm, Normal S1, Normal S2, Bradycardia GI/Abdominal Exam: Normal Bowel Sounds, Soft, Non-Tender Skin: Warm, Dry - Patient Data Lab Results Last 24 hrs: Laboratory Results - last 24 hr 12/14/19 12/14/19 12/14/19 Range/Units 15:10 15:10 15:10 WBC 6.21 (4.0-11.0) K/uL RBC 4.31 L (4.50-5.90) M/uL Hgb 12.6 L (13.0-17.0) g/dL Hct 38.7 (38.0-50.0) % MCV 89.8 (80.0-98.0) fL MCH 29.2 (27.0-32.0) pg MCHC 32.6 (31.0-37.0) g/dL RDW Std Deviation 48.9 (28.0-62.0) fl RDW Coeff of Bonny 15 (11.0-15.0) % Plt Count 179 (150-400) K/uL MPV 9.50 (7.40-12.00) fL Neut % (Auto) 74.6 (48.0-80.0) % Lymph % (Auto) 19.6 (16.0-40.0) % [place] % (Auto) 4.8 (0.0-15.0) % Eos % (Auto) 0.8 (0.0-7.0) % Baso % (Auto) 0.2 (0.0-1.5) % Neut # (Auto) 4.6 (1.4-5.7) K/uL Lymph # (Auto) 1.2 (0.6-2.4) K/uL [place] # (Auto) 0.3 (0.0-0.8) K/uL Eos # (Auto) 0.1 (0.0-0.7) K/uL Baso # (Auto) 0.0 (0.0-0.1) K/uL Nucleated RBC % 0.0 /100WBC Nucleated RBCs # 0 K/uL INR 0.96 Sodium 137 (136-148) mmol/L Potassium 4.3 (3.5-5.1) mmol/L Chloride 100 (98-107) mmol/L Carbon Dioxide 27.8 (21.0-32.0) mmol/L BUN 25 H (7.0-18.0) mg/dL Creatinine 1.8 H (0.8-1.3) mg/dL Est Cr Clr Drug Dosing 40.12 mL/min Estimated GFR (MDRD) 37.2 ml/min Glucose 125 H (74-106) mg/dL Calcium 8.5 (8.5-10.1) mg/dL Total Bilirubin 0.6 (0.2-1.0) mg/dL AST 19 (15-37) IU/L ALT 28 (14-63) IU/L Alkaline Phosphatase 85 (46-116) U/L Troponin I < 0.050 (0.000-0.056) ng/mL Total Protein 7.1 (6.4-8.2) g/dL Albumin 3.7 (3.4-5.0) g/dL Globulin 3.4 (2.6-4.0) g/dL Albumin/Globulin Ratio 1.1 (0.9-1.6) Result Diagrams: 12/14/19 15:10 12/15/19 04:50 Sepsis Event Note - Evaluation Sepsis Screening Result: No Definite Risk - Focused Exam Vital Signs: Vital Signs Temp Pulse Resp BP Pulse Ox 12/14/19 17:45 36.9 C 49 L 18 138/64 94 L 12/14/19 16:30 53 L 18 125/53 L 94 L 12/14/19 16:00 52 L 18 128/56 L 94 L 12/14/19 15:15 54 L 19 110/61 95 12/14/19 15:03 36.6 C 57 L 20 143/61 H 93 L Date Exam was Performed: 12/15/19 Time Exam was Performed: 12:08 - Problem List (1) CARDOSO (dyspnea on exertion) SNOMED Code(s): 01244840 ICD Code: R06.00 - DYSPNEA, UNSPECIFIED Status: Acute Current Visit: Yes (2) Pre-syncope SNOMED Code(s): 156777869 ICD Code: R55 - SYNCOPE AND COLLAPSE Status: Acute Current Visit: Yes (3) GERD (gastroesophageal reflux disease) SNOMED Code(s): 470176847 ICD Code: K21.9 - GASTRO-ESOPHAGEAL REFLUX DISEASE WITHOUT ESOPHAGITIS Status: Acute Current Visit: No Qualifiers: Esophagitis presence: esophagitis presence not specified Qualified Code(s) : K21.9 - Gastro-esophageal reflux disease without esophagitis (4) Rheumatoid arthritis SNOMED Code(s): 83139449 ICD Code: M06.9 - RHEUMATOID ARTHRITIS, UNSPECIFIED Status: Chronic Priority: Medium Current Visit: No Qualifiers: Rheumatoid arthritis location: wrist Rheumatoid factor presence: unspecified presence Laterality: bilateral Qualified Code(s): M06.9 - Rheumatoid arthritis, unspecified Problem List Initiated/Reviewed/Updated: Yes Orders Last 24hrs: Active Orders 24 hr Category Date Time Status Admission Status [Patient Status] [ADT] Stat ADT 12/14/19 16:39 Active Ambulate [RC] ASDIRECTED Care 12/14/19 18:04 Active Antiembolic Devices [RC] PER UNIT ROUTINE Care 12/14/19 18:05 Active Oxygen Therapy [RC] PRN Care 12/14/19 18:04 Active RT Aerosol Therapy [RC] ASDIRECTED Care 12/14/19 18:06 Active VTE/DVT Education [RC] PER UNIT ROUTINE Care 12/14/19 18:04 Active Vital Signs [RC] Q4H Care 12/14/19 18:04 Active Heart Healthy Diet [DIET] Diet 12/14/19 Dinner Active BMP [BASIC METABOLIC PANEL,BMP] [CHEM] AM Lab 12/15/19 05:11 Ordered MAGNESIUM [CHEM] AM Lab 12/15/19 05:11 Ordered MAGNESIUM [CHEM] Routine Lab 12/14/19 18:09 Ordered PHOSPHORUS [CHEM] AM Lab 12/15/19 05:11 Ordered PHOSPHORUS [CHEM] Routine Lab 12/14/19 18:09 Ordered TROPONIN I [CHEM] Q3H Lab 12/14/19 18:10 Ordered TROPONIN I [CHEM] Q3H Lab 12/14/19 21:10 Ordered Acetaminophen [Tylenol] Med 12/14/19 18:04 Ordered 650 mg PO Q4H PRN Albuterol/Ipratropium [DuoNeb 3.0-0.5 MG/3 ML] Med 12/14/19 18:04 Ordered 3 ml NEB Q4HRRT PRN Aspirin Med 12/15/19 09:00 Ordered 81 mg PO DAILY Calcium Carbonate/Vitamin D3 Med 12/14/19 21:00 Ordered 1 tab PO BID Clopidogrel [Plavix] Med 12/15/19 09:00 Ordered 5,625 mg PO DAILY Lactated Ringers [Ringers, Lactated] 1,000 ml Med 12/14/19 18:04 Active IV BOLUS Morphine Med 12/14/19 18:04 Ordered 1 mg IVPUSH Q4H PRN Pantoprazole [ProTONIX] Med 12/15/19 09:00 Ordered 40 mg PO DAILY Sodium Chloride 0.9% [Normal Saline] 1,000 ml Med 12/14/19 15:17 Active IV .Bolus Tamsulosin [Flomax] Med 12/15/19 09:00 Ordered 0.4 mg PO DAILY atorvaSTATin [Lipitor] Med 12/14/19 21:00 Ordered 40 mg PO BEDTIME predniSONE Med 12/15/19 09:00 Ordered 5 mg PO DAILY traZODone HCl Med 12/14/19 18:06 Ordered 100 mg PO BEDTIME PRN Sequential Compression Device [OM.PC] Per Unit Routine Oth 12/14/19 18:04 Ordered Medication Orders Acetaminophen (Tylenol) 650 mg PO Q4H PRN PRN Reason: Pain (Mild 1-3)/fever Albuterol/Ipratropium (Duoneb 3.0-0.5 Mg/3 Ml) 3 ml NEB Q4HRRT PRN PRN Reason: Shortness Of Breath/wheezing Aspirin (Aspirin) 81 mg PO DAILY ALISON Atorvastatin Calcium (Lipitor) 40 mg PO BEDTIME ALISON Clopidogrel Bisulfate (Plavix) 5,625 mg PO DAILY ALISON Sodium Chloride (Normal Saline) 1,000 mls @ 125 mls/hr IV .Bolus ONE Stop: 04/21/20 23:16 Last Admin: 12/14/19 15:24 Dose: 125 mls/hr Lactated Ringer's (Ringers, Lactated) 1,000 mls @ 999 mls/hr IV BOLUS ONE Stop: 12/14/19 19:04 Morphine Sulfate (Morphine) 1 mg IVPUSH Q4H PRN PRN Reason: Pain (severe 7-10) Stop: 12/15/19 18:05 Non-Formulary Medication (Calcium Carbonate/Vitamin D3) 1 tab PO BID ALISON Pantoprazole Sodium (Protonix) 40 mg PO DAILY ALISON Prednisone (Prednisone) 5 mg PO DAILY ALISON Tamsulosin HCl (Flomax) 0.4 mg PO DAILY ALISON Trazodone HCl (Trazodone Hcl) 100 mg PO BEDTIME PRN PRN Reason: Insomnia Assessment/Plan Comment:: 74 y/o M admitted for CARDOSO, pre-syncope 1st troponin negative, will trend Q3H Symptoms could be secondary to Bradycardia, will hold b-aria for now cont tele monitoring Mild kidney dysfunction, will start IVF Will resume home meds as appropriate Cont DAPT, cont statin May need OP stress test vs Cardiac cath monitor and replete electrolytes as needed
[2019-12-14] MEDS ORDERED: atorvaSTATin 40 MG Tab PO SCH (21:00)
[2019-12-14] MEDS: Calcium Carbonate/Vitamin D3 1500 MG-400 Units Tab PO SCH (21:11)
[2019-12-15 05:51] LABS: CARBON DIOXIDE,CO2 29.9 mmol/L (21.0-32.0); POTASSIUM,K 4.2 mmol/L (3.5-5.1)
[2019-12-15] MEDS ORDERED: Pantoprazole 40 MG Tab.CR PO SCH (07:30)
[2019-12-15] MEDS: Calcium Carbonate/Vitamin D3 1500 MG-400 Units Tab PO SCH (08:01)
[2019-12-15] MEDS ORDERED: predniSONE 5 MG Tab PO SCH (09:00)
[2019-12-15] MEDS ORDERED: Aspirin 81 MG Tab.Chew PO SCH (09:00)
[2019-12-15] MEDS ORDERED: Clopidogrel 75 MG Tab PO SCH (09:00)
[2019-12-15] MEDS ORDERED: Tamsulosin 0.4 MG Cap.ER PO SCH (09:00)
[2019-12-15] MEDS ORDERED: Magnesium Sulfate/Water 2 GM in Premix Bag 1 BAG IV ONE (09:43)
[2019-12-15] MEDS ORDERED: Metoprolol Tartrate 25 MG Tab PO SCH (10:00)
[2019-12-15] MEDS ORDERED: Lisinopril 5 MG Tab PO SCH (10:00)
[2019-12-15] MEDS ORDERED: amLODIPine 5 MG Tab PO SCH (10:00)
[2019-12-15 10:21] VITALS: BP 171/69; PULSE 85
--- NOTE | 2019-12-15 12:08 | PCM.DCSUM1 ---
Discharge Summary - Hospital Course Free Text/Narrative:: Patient is a 74 y/o M with remote h/o CABG, HTN, RA, anemia who comes in secondary to SOB on exertion, pre-syncope and generalized weakness for past few days. Patient states that he "felt similar symptoms before his CABG". Patient sttaes he had stopped taking his Plavix for 2 days and later cut the dose to held for next 2 days before resuming normal dose due to frequent nose bleeds. Patient states his HR is usally in 40s when he checks at home, takes B- blockers. States he may not be drinking as much waster for past few days. In the ER 1st troponin was negative, EKG unremarkable for acute ACS. Patient is being admitted for ACS rule out. Patient denied chest pain ,palpitations, LOC, N /V/D, abdominal pain, neurological deficits, urinary symptoms . Patients troponin were trended, all of the 3 troponin were negative, no non-sustained Vtach/Vfib overnight. ACS was ruled out. His HR was in 50s so B-Elver was held , and next day patients HR improved, his symptoms had resolved. His BP meds were adjusted and he was medically stable for dc and recommended to fu with her cell liner and pcp on OP basis. Diagnosis: Stroke: No - Discharge Data Discharge Date: 12/15/19 Discharge Disposition: Home, Self-Care 01 Condition: Fair - Referral to Home Health Primary Care Physician: PCP Unobtainable - Discharge Diagnosis/Problem(s) (1) CARDOSO (dyspnea on exertion) SNOMED Code(s): 36311307 ICD Code: R06.00 - DYSPNEA, UNSPECIFIED Status: Acute (2) Pre-syncope SNOMED Code(s): 211895397 ICD Code: R55 - SYNCOPE AND COLLAPSE Status: Acute (3) GERD (gastroesophageal reflux disease) SNOMED Code(s): 698674268 ICD Code: K21.9 - GASTRO-ESOPHAGEAL REFLUX DISEASE WITHOUT ESOPHAGITIS Status: Acute Qualifiers: Esophagitis presence: esophagitis presence not specified Qualified Code(s) : K21.9 - Gastro-esophageal reflux disease without esophagitis (4) Rheumatoid arthritis SNOMED Code(s): 86267610 ICD Code: M06.9 - RHEUMATOID ARTHRITIS, UNSPECIFIED Status: Chronic Priority: Medium Qualifiers: Rheumatoid arthritis location: wrist Rheumatoid factor presence: unspecified presence Laterality: bilateral Qualified Code(s): M06.9 - Rheumatoid arthritis, unspecified - Discharge Plan *PRESCRIPTION DRUG MONITORING PROGRAM REVIEWED*: Not Applicable *COPY OF PRESCRIPTION DRUG MONITORING REPORT IN PATIENT MARQUITA: Not Applicable Prescriptions/Med Rec: lisinopriL [Lisinopril] 10 mg PO BID 30 Days #30 tablet Metoprolol Tartrate [Lopressor] 12.5 mg PO BID #30 tablet Home Medications: Home Meds Calcium Carbonate/Vitamin D3 [Calcium 250+D] 1 tab PO DAILY 05/17/16 [History] predniSONE [Prednisone] 5 mg PO DAILY 05/17/16 [History] atorvaSTATin [Lipitor] 40 mg PO BEDTIME 10/26/16 [History] traZODone HCl [Trazodone HCl] 100 mg PO BEDTIME PRN 10/26/16 [History] Alendronate Sodium [Fosamax] 70 mg PO WEEKLY 01/09/17 [History] Methotrexate 8 tab PO FOSTER 01/09/17 [History] Clopidogrel [Plavix] 75 tab PO DAILY 05/26/18 [History] Etanercept [Enbrel] 25 ml IM WEEKLY 05/26/18 [History] amLODIPine Besylate [Amlodipine Besylate] 10 mg PO DAILY 05/26/18 [History] Albuterol Sulfate [Albuterol Sulfate Hfa] 2 puff INH Q4HR PRN 12/14/19 [History] Aspirin 81 mg PO DAILY 12/14/19 [History] Fish Oil/[place]-3 Fatty Acids [Fish Oil 1,000 MG] 1,000 mg PO DAILY 12/14/19 [ History] Pantoprazole [ProTONIX] 40 mg PO DAILY 12/14/19 [History] Tamsulosin [Flomax] 0.4 mg PO DAILY 12/14/19 [History] Metoprolol Tartrate [Lopressor] 12.5 mg PO BID #30 tablet 12/15/19 [Rx] lisinopriL [Lisinopril] 10 mg PO BID 30 Days #30 tablet 12/15/19 [Rx] Patient Handouts: Metoprolol tablets, Nonspecific Chest Pain, Adult, Lisinopril tablets Forms: ED Department Discharge Referrals: Marga Lowery MD [Physician] - 12/24/19 10:30 am (The stress test clinic will call you with an appointment for your next stress test. ) PCP,Unobtain [Primary Care Provider] - - Discharge Summary/Plan Comment DC Time >30 min.: No - Patient Data Vitals - Most Recent: Last Vital Signs Temp 36.7 C 12/15/19 07:20 Pulse 85 12/15/19 10:17 Resp 16 12/15/19 07:20 BP 171/69 H 12/15/19 10:17 Pulse Ox 93 L 12/15/19 07:20 Weight - Most Recent: 89.5 kg I&O - Last 24 hours: Intake & Output 12/14/19 12/15/19 12/15/19 22:59 06:59 14:59 Intake Total 989 100 Output Total 1500 Balance 989 -1400 Lab Results - Last 24 hrs: Laboratory Results - last 24 hr 12/14/19 12/14/19 12/14/19 Range/Units 15:10 15:10 15:10 WBC 6.21 (4.0-11.0) K/uL RBC 4.31 L (4.50-5.90) M/uL Hgb 12.6 L (13.0-17.0) g/dL Hct 38.7 (38.0-50.0) % MCV 89.8 (80.0-98.0) fL MCH 29.2 (27.0-32.0) pg MCHC 32.6 (31.0-37.0) g/dL RDW Std Deviation 48.9 (28.0-62.0) fl RDW Coeff of [place] 15 (11.0-15.0) % Plt Count 179 (150-400) K/uL MPV 9.50 (7.40-12.00) fL Neut % (Auto) 74.6 (48.0-80.0) % Lymph % (Auto) 19.6 (16.0-40.0) % [place] % (Auto) 4.8 (0.0-15.0) % Eos % (Auto) 0.8 (0.0-7.0) % Baso % (Auto) 0.2 (0.0-1.5) % Neut # (Auto) 4.6 (1.4-5.7) K/uL Lymph # (Auto) 1.2 (0.6-2.4) K/uL [place] # (Auto) 0.3 (0.0-0.8) K/uL Eos # (Auto) 0.1 (0.0-0.7) K/uL Baso # (Auto) 0.0 (0.0-0.1) K/uL Nucleated RBC % 0.0 /100WBC Nucleated RBCs # 0 K/uL INR 0.96 Sodium 137 (136-148) mmol/L Potassium 4.3 (3.5-5.1) mmol/L Chloride 100 (98-107) mmol/L Carbon Dioxide 27.8 (21.0-32.0) mmol/L BUN 25 H (7.0-18.0) mg/dL Creatinine 1.8 H (0.8-1.3) mg/dL Est Cr Clr Drug Dosing 40.12 mL/min Estimated GFR (MDRD) 37.2 ml/min Glucose 125 H (74-106) mg/dL Calcium 8.5 (8.5-10.1) mg/dL Phosphorus (2.6-4.7) mg/dL Magnesium (1.8-2.4) mg/dL Total Bilirubin 0.6 (0.2-1.0) mg/dL AST 19 (15-37) IU/L ALT 28 (14-63) IU/L Alkaline Phosphatase 85 (46-116) U/L Troponin I < 0.050 (0.000-0.056) ng/mL Total Protein 7.1 (6.4-8.2) g/dL Albumin 3.7 (3.4-5.0) g/dL Globulin 3.4 (2.6-4.0) g/dL Albumin/Globulin Ratio 1.1 (0.9-1.6) 12/14/19 12/14/19 12/14/19 Range/Units 18:14 18:14 21:09 WBC (4.0-11.0) K/uL RBC (4.50-5.90) M/uL Hgb (13.0-17.0) g/dL Hct (38.0-50.0) % MCV (80.0-98.0) fL MCH (27.0-32.0) pg MCHC (31.0-37.0) g/dL RDW Std Deviation (28.0-62.0) fl RDW Coeff of [place] (11.0-15.0) % Plt Count (150-400) K/uL MPV (7.40-12.00) fL Neut % (Auto) (48.0-80.0) % Lymph % (Auto) (16.0-40.0) % [place] % (Auto) (0.0-15.0) % Eos % (Auto) (0.0-7.0) % Baso % (Auto) (0.0-1.5) % Neut # (Auto) (1.4-5.7) K/uL Lymph # (Auto) (0.6-2.4) K/uL [place] # (Auto) (0.0-0.8) K/uL Eos # (Auto) (0.0-0.7) K/uL Baso # (Auto) (0.0-0.1) K/uL Nucleated RBC % /100WBC Nucleated RBCs # K/uL INR Sodium (136-148) mmol/L Potassium (3.5-5.1) mmol/L Chloride (98-107) mmol/L Carbon Dioxide (21.0-32.0) mmol/L BUN (7.0-18.0) mg/dL Creatinine (0.8-1.3) mg/dL Est Cr Clr Drug Dosing mL/min Estimated GFR (MDRD) ml/min Glucose (74-106) mg/dL Calcium (8.5-10.1) mg/dL Phosphorus 3.5 (2.6-4.7) mg/dL Magnesium 2.0 (1.8-2.4) mg/dL Total Bilirubin (0.2-1.0) mg/dL AST (15-37) IU/L ALT (14-63) IU/L Alkaline Phosphatase (46-116) U/L Troponin I < 0.050 < 0.050 (0.000-0.056) ng/mL Total Protein (6.4-8.2) g/dL Albumin (3.4-5.0) g/dL Globulin (2.6-4.0) g/dL Albumin/Globulin Ratio (0.9-1.6) 12/15/19 Range/Units 04:50 WBC (4.0-11.0) K/uL RBC (4.50-5.90) M/uL Hgb (13.0-17.0) g/dL Hct (38.0-50.0) % MCV (80.0-98.0) fL MCH (27.0-32.0) pg MCHC (31.0-37.0) g/dL RDW Std Deviation (28.0-62.0) fl RDW Coeff of [place] (11.0-15.0) % Plt Count (150-400) K/uL MPV (7.40-12.00) fL Neut % (Auto) (48.0-80.0) % Lymph % (Auto) (16.0-40.0) % [place] % (Auto) (0.0-15.0) % Eos % (Auto) (0.0-7.0) % Baso % (Auto) (0.0-1.5) % Neut # (Auto) (1.4-5.7) K/uL Lymph # (Auto) (0.6-2.4) K/uL [place] # (Auto) (0.0-0.8) K/uL Eos # (Auto) (0.0-0.7) K/uL Baso # (Auto) (0.0-0.1) K/uL Nucleated RBC % /100WBC Nucleated RBCs # K/uL INR Sodium 142 (136-148) mmol/L Potassium 4.2 (3.5-5.1) mmol/L Chloride 105 (98-107) mmol/L Carbon Dioxide 29.9 (21.0-32.0) mmol/L BUN 19 H (7.0-18.0) mg/dL Creatinine 1.2 (0.8-1.3) mg/dL Est Cr Clr Drug Dosing 60.18 mL/min Estimated GFR (MDRD) 59.3 ml/min Glucose 89 (74-106) mg/dL Calcium 8.4 L (8.5-10.1) mg/dL Phosphorus 2.7 (2.6-4.7) mg/dL Magnesium 1.6 L (1.8-2.4) mg/dL Total Bilirubin (0.2-1.0) mg/dL AST (15-37) IU/L ALT (14-63) IU/L Alkaline Phosphatase (46-116) U/L Troponin I (0.000-0.056) ng/mL Total Protein (6.4-8.2) g/dL Albumin (3.4-5.0) g/dL Globulin (2.6-4.0) g/dL Albumin/Globulin Ratio (0.9-1.6) Med Orders - Current: Current Medications Acetaminophen (Tylenol) 650 mg PO Q4H PRN PRN Reason: Pain (Mild 1-3)/fever Albuterol/Ipratropium (Duoneb 3.0-0.5 Mg/3 Ml) 3 ml NEB Q4HRRT PRN PRN Reason: Shortness Of Breath/wheezing Amlodipine Besylate (Norvasc) 10 mg PO DAILY [facility] Last Admin: 12/15/19 10:17 Dose: 10 mg Aspirin (Aspirin) 81 mg PO DAILY [facility] Last Admin: 12/15/19 08:01 Dose: 81 mg Atorvastatin Calcium (Lipitor) 40 mg PO BEDTIME [facility] Last Admin: 12/14/19 21:11 Dose: 40 mg Calcium Carbonate (Caltrate 600+D 1500 Mg-400 Units) 1 tab PO BID [facility] Last Admin: 12/15/19 08:01 Dose: 1 tab Clopidogrel Bisulfate (Plavix) 75 mg PO DAILY [facility] Last Admin: 12/15/19 08:01 Dose: 75 mg Lisinopril (Prinivil) 10 mg PO BID [facility] Last Admin: 12/15/19 10:16 Dose: 10 mg Metoprolol Tartrate (Lopressor) 12.5 mg PO BID [facility] Last Admin: 12/15/19 10:17 Dose: 12.5 mg Morphine Sulfate (Morphine) 1 mg IVPUSH Q4H PRN PRN Reason: Pain (severe 7-10) Stop: 12/15/19 18:05 Pantoprazole Sodium (Protonix) 40 mg PO ACBREAKFAST [facility] Last Admin: 12/15/19 08:00 Dose: 40 mg Prednisone (Prednisone) 5 mg PO DAILY [facility] Last Admin: 12/15/19 08:01 Dose: 5 mg Tamsulosin HCl (Flomax) 0.4 mg PO DAILY [facility] Last Admin: 12/15/19 08:01 Dose: 0.4 mg Trazodone HCl (Trazodone Hcl) 100 mg PO BEDTIME PRN PRN Reason: Insomnia Discontinued Medications Sodium Chloride (Normal Saline) 1,000 mls @ 125 mls/hr IV .Bolus ONE Stop: 12/14/19 23:16 Last Admin: 12/14/19 15:24 Dose: 125 mls/hr Lactated Ringer's (Ringers, Lactated) 1,000 mls @ 999 mls/hr IV BOLUS ONE Stop: 12/14/19 19:04 Last Admin: 12/14/19 18:54 Dose: 999 mls/hr Magnesium Sulfate 2 gm/ Premix 50 mls @ 50 mls/hr IV ONETIME ONE Stop: 12/15/19 10:42 Last Admin: 12/15/19 10:20 Dose: 50 mls/hr
== END 2019-12-15 13:05 | disposition home or self-care (01) ==
LOC: MW.ED 15:03 → MW.MS 16:39
PROVIDERS: ADMIT Student in an Organized Health Care Education/Training Program; ATTEND Student in an Organized Health Care Education/Training Program
DX: R06.00 Dyspnea, unspecified (principal); R55 Syncope and collapse; K21.9 Gastro-esophageal reflux disease without esophagitis; M06.9 Rheumatoid arthritis, unspecified; I10 Essential (primary) hypertension; E78.00 Pure hypercholesterolemia, unspecified; Z79.899 Other long term (current) drug therapy; Z79.82 Long term (current) use of aspirin; Z87.891 Personal history of nicotine dependence
CPT/HCPCS: 36415; 71045; 71045-26; 80048; 80053; 83735; 84100; 84484; 85025; 85610; 93005; 96360; 96361; 96374; 99285-25; A9270-GY; G0378; J3475; J7030; J7120; J7512

== ENCOUNTER 2022-12-13 10:56 | Day surgery (SDC) | payer OTHER, MEDICARE ==
[~2022-12-13 10:56] MED LIST changes: -Propofol 200 MG/20 ML SDV ONE; -fentaNYL 100 MCG/2 ML SDV ONE
[2022-12-13] MEDS ORDERED: Lidocaine 2% 5 ML SDV ONE (11:54)
[2022-12-13] MEDS ORDERED: Propofol 200 MG/20 ML SDV ONE (11:55)
[2022-12-13] MEDS ORDERED: fentaNYL 100 MCG/2 ML SDV ONE (12:01)
[2022-12-13] MEDS ORDERED: Lactated Ringers 1,000 ML IV SCH (13:00)
[2022-12-13 13:29] VITALS: BP 115/61; PULSE 60
== END 2022-12-13 13:14 | disposition home or self-care (01) ==
LOC: MW.SDS 10:56
PROVIDERS: ATTEND Surgery
DX: K29.50 Unspecified chronic gastritis without bleeding (principal); K20.90 Esophagitis, unspecified without bleeding; K31.89 Other diseases of stomach and duodenum; D64.9 Anemia, unspecified; I25.10 Atherosclerotic heart disease of native coronary artery without angina pectoris; K64.8 Other hemorrhoids; I10 Essential (primary) hypertension; E78.00 Pure hypercholesterolemia, unspecified; I48.91 Unspecified atrial fibrillation; I47.1 Supraventricular tachycardia; M06.9 Rheumatoid arthritis, unspecified; Z79.899 Other long term (current) drug therapy; Z87.891 Personal history of nicotine dependence; Z95.1 Presence of aortocoronary bypass graft; Z78.9 Other specified health status; Z98.890 Other specified postprocedural states
CPT/HCPCS: 43239; 45378; J2704; J3010; J7120; 00813; 88305; 99100; J3490

== ENCOUNTER 2024-05-01 06:48 | Emergency (ER) | payer MEDICARE, BC, OTHER ==
[2024-05-01] MEDS ORDERED: Sodium Chloride 0.9% 2.5 ML Syringe FLUSH PRN (06:51)
[2024-05-01 07:31] LABS: BASOPHILS ABSOLUTE AUTO 0.02 K/uL (0.00-0.20); BASOPHILS PERCENT AUTO 0.2 % (0.0-1.0); EOSINOPHILS ABSOLUTE AUTO 0.04 K/uL (0.00-0.45); EOSINOPHILS PERCENT AUTO 0.3 % (0.0-6.0); HEMATOCRIT 32.9 % (42.0-52.0); HEMOGLOBIN 10.9 g/dL (14.0-18.0); IMMATURE GRAN ABSOLUTE AUTO 0.04 K/uL (0.00-0.05); IMMATURE GRAN PERCENT AUTO 0.3 % (0.0-0.4); LYMPHOCYTES ABSOLUTE AUTO 0.83 K/uL (1.00-4.80); LYMPHOCYTES PERCENT AUTO 7.3 % (24.0-44.0); MEAN CORPUSCULAR HGB CONC 33.1 g/dL (32.0-36.0); MEAN CORPUSCULAR VOLUME 93.5 fL (83.0-99.0); MEAN PLATELET VOLUME 9.1 fL (9.4-12.4); MONOCYTES ABSOLUTE AUTO 0.81 K/uL (0.00-0.80); MONOCYTES PERCENT AUTO 7.1 % (0.0-8.0); NEUTROPHILS ABSOLUTE AUTO 9.69 K/uL (1.80-7.70); NEUTROPHILS PERCENT AUTO 84.8 % (41.0-71.0); PLATELET COUNT,PLT 168 K/uL (150-400); RED BLOOD CELL COUNT 3.52 M/uL (4.52-5.90); WHITE BLOOD CELL COUNT,WBC 11.43 K/uL (3.9-11.3)
[2024-05-01 07:44] LABS: INR 1.06 (0.86-1.11)
[2024-05-01] MEDS: Orphenadrine 60 MG/2 ML Inj IV ONE (08:01)
[2024-05-01] MEDS: diphenhydrAMINE 50 MG/ML SDV IVPUSH ONE (08:01)
[2024-05-01] MEDS: Sodium Chloride 0.9% 10 ML Syringe FLUSH PRN (08:01)
[2024-05-01] MEDS: fentaNYL 50 MCG/ML SDV IVPUSH ONE (08:01)
[2024-05-01 08:03] LABS: A/G RATIO 0.7 (0.9-1.6); ALBUMIN 2.7 g/dL (3.4-5.0); BILIRUBIN TOTAL 0.8 mg/dL (0.2-1.0); CALCIUM 8.6 mg/dL (8.5-10.1); CARBON DIOXIDE,CO2 32.8 mmol/L (21.0-32.0); EST CRCL DRUG DOSING (CG) 63.88 mL/min; PROTEIN TOTAL,TP 6.4 g/dL (6.4-8.2)
[2024-05-01 08:15] LABS: POTASSIUM,K 4.2 mmol/L (3.5-5.1)
[2024-05-01] MEDS: Iopamidol 755 MG/ML 500 ML Multipack Bottle IVPUSH STA (09:52)
[2024-05-01] MEDS: Albuterol/Ipratropium 3.0-0.5 MG/3 ML Neb Soln NEB ONE (10:23)
[2024-05-01 11:16] VITALS: BP 141/61; PULSE 96
== END 2024-05-01 11:15 | disposition home or self-care (01) ==
LOC: MW.ED 06:48
DX: R07.89 Other chest pain (principal); R06.00 Dyspnea, unspecified; I10 Essential (primary) hypertension; I25.2 Old myocardial infarction; E78.00 Pure hypercholesterolemia, unspecified; Z79.899 Other long term (current) drug therapy; Z75.8 Other problems related to medical facilities and other health care
CPT/HCPCS: 36415; 71045; 71275; 80053; 83880; 84484; 85025; 85379; 85610; 93005; 96374; 96375; 99285; J1200; J2360; J3010; J3490; Q9967; 93010; J7620-GY

== ENCOUNTER 2024-10-23 01:02 | Emergency (ER) | payer OTHER ==
[2024-10-23] MEDS ORDERED: Naloxone 0.4 MG/ML SDV IVPUSH PRN (01:25)
[2024-10-23 01:28] LABS: BASOPHILS ABSOLUTE AUTO 0.03 K/uL (0.00-0.20); BASOPHILS PERCENT AUTO 0.3 % (0.0-1.0); EOSINOPHILS ABSOLUTE AUTO 0.17 K/uL (0.00-0.45); EOSINOPHILS PERCENT AUTO 1.9 % (0.0-6.0); HEMATOCRIT 40.3 % (42.0-52.0); HEMOGLOBIN 13.3 g/dL (14.0-18.0); IMMATURE GRAN ABSOLUTE AUTO 0.03 K/uL (0.00-0.05); IMMATURE GRAN PERCENT AUTO 0.3 % (0.0-0.4); LYMPHOCYTES ABSOLUTE AUTO 2.12 K/uL (1.00-4.80); LYMPHOCYTES PERCENT AUTO 23.4 % (24.0-44.0); MEAN CORPUSCULAR VOLUME 93.9 fL (83.0-99.0); MEAN PLATELET VOLUME 9.4 fL (9.4-12.4); MONOCYTES ABSOLUTE AUTO 0.91 K/uL (0.00-0.80); NEUTROPHILS PERCENT AUTO 64.1 % (41.0-71.0); PLATELET COUNT,PLT 195 K/uL (150-400); RED BLOOD CELL COUNT 4.29 M/uL (4.52-5.90); WHITE BLOOD CELL COUNT,WBC 9.06 K/uL (3.9-11.3)
[2024-10-23] MEDS: Morphine 2 MG/ML SYRINGE IVPUSH ONE (01:29)
[2024-10-23 01:50] LABS: PH,VENOUS 7.35 (7.31-7.41)
[2024-10-23 01:55] LABS: A/G RATIO 0.9 (0.9-1.6); ALBUMIN 3.5 g/dL (3.4-5.0); BILIRUBIN TOTAL 0.4 mg/dL (0.2-1.0); CALCIUM 9.1 mg/dL (8.5-10.1); CARBON DIOXIDE,CO2 33.2 mmol/L (21.0-32.0); CREATININE 1.2 mg/dL (0.8-1.3); EST CRCL DRUG DOSING (CG) 55.69 mL/min; POTASSIUM,K 4.1 mmol/L (3.5-5.1); PROTEIN TOTAL,TP 7.2 g/dL (6.4-8.2)
[2024-10-23 04:27] VITALS: PULSE 75
[2024-10-23 05:02] VITALS: BP 125/60
== END 2024-10-23 05:01 | disposition home or self-care (01) ==
LOC: MW.ED 01:02
DX: R07.89 Other chest pain (principal); I10 Essential (primary) hypertension; I25.10 Atherosclerotic heart disease of native coronary artery without angina pectoris; I25.2 Old myocardial infarction; E78.00 Pure hypercholesterolemia, unspecified; J44.9 Chronic obstructive pulmonary disease, unspecified; I48.91 Unspecified atrial fibrillation; K21.9 Gastro-esophageal reflux disease without esophagitis; Z95.1 Presence of aortocoronary bypass graft; Z79.899 Other long term (current) drug therapy; Z79.01 Long term (current) use of anticoagulants; Z75.8 Other problems related to medical facilities and other health care
CPT/HCPCS: 36415; 71045; 80053; 82803; 83880; 84484; 85025; 93005; 96374; 99285; J2270